=== PATIENT | male | born 1975 | race Caucasian/White ===

== ENCOUNTER → 2016-07-28 | Outpatient (CLI) | payer OTHER ==
[~2016-07-28] MED LIST: CLON1TAB3 PO; EFFSR75 PO; INDSR80 PO; IPRA1AER2 INH; KLN1X PO; MECL1TAB42 PO; PROM25TA9 PO; PROP20TA67 PO; PROP80CA PO; QUET1TAB10 PO; QUET1TAB34 PO; SNG10 PO
[2016-07-28 12:33] LABS: ALT/SGPT 24 U/L (12-78); AST/SGOT 16 U/L (15-37); BLOOD UREA NITROGEN 13 mg/dl (7-18); BUN/CREATININE RATIO 11.4 (10-20); CALCIUM 8.9 mg/dl (8.5-10.1); CARBON DIOXIDE 27 mmol/L (21-32); CHLORIDE 105 mmol/L (98-107); CHOLESTEROL 221 mg/dl (0-200); GLUCOSE 90 mg/dl (70-99); POTASSIUM 4.1 mmol/L (3.5-5.1); SODIUM 141 mmol/L (136-145)
[2016-07-28 12:41] LABS: ALB/GLOB RATIO 1.2 (0.9-2); ALKALINE PHOSPHATASE 58 U/L (45-117); CHOLESTEROL/HDL RATIO 5.3; HDL CHOLESTEROL 42 mg/dl; LDL CHOLESTEROL CALCULATED 138 mg/dl; TRIGLYCERIDES 207 mg/dl (0-150); VERY LOW DENSITY LIPOPROT CALC 41 mg/dl
[2016-07-29 16:12] LABS: MICROSOMAL AB <1 IU/ML (<9)
== END | disposition home or self-care (01) ==
LOC: C.LABBFT 08:38
PROVIDERS: ATTEND Internal Medicine
DX: Z00.00 Encounter for general adult medical examination without abnormal findings (principal); E07.9 Disorder of thyroid, unspecified

== ENCOUNTER 2016-12-11 09:35 | Emergency (ER) | payer OTHER ==
[~2016-12-11] VITALS: Ht 179.1 cm; Wt 120.7 kg
[~2016-12-11 09:35] MED LIST changes: -EFFSR75 PO; -INDSR80 PO; -IPRA1AER2 INH; -KLN1X PO; -MECL1TAB42 PO; -PROM25TA9 PO; -PROP80CA PO; -QUET1TAB10 PO; -SNG10 PO
[2016-12-11 09:42] VITALS: TEMP 36.7; Ht 179.1 cm; Wt 120.7 kg
--- NOTE | 2016-12-11 10:27 | EMERGENCY ROOM VISIT NOTE ---
History Report prepared by Dariana: Javier Faust Under the Supervision of: Dr. Pedro Diaz M.D. First contact with patient: 09:59 Chief Complaint: DIZZY Stated Complaint: EAR PAIN,LOSS OF HEARING,VERTIGO,ACUTE NAUSEA Nursing Triage Summary: Pt arrives to triage diaphoretic. Pt reports problems with left ear for a couple months. Pt reports n/v, dizziness/"vertigo" within the last 1-2 days, hearing difficulty. Pt states, "I tried cleaning it with a q-tip and got black stuff. I put ear drops in it." History of Present Illness The patient is a 41 year old male who presents to the Emergency Room with complaints of pain in the left ear that began 3 days prior to this visit. The patient is also complaining of dizziness that onset at roughly the same time. He describes his dizziness as the room spinning, and claims that it is worsened with standing up/moving. He also notes that he has experienced some acute nausea and vomiting secondary to the dizziness. When his dizziness onsets he becomes diaphoretic. He denies any chest pain, shortness of breath, or abdominal pain. The patient attempted to use some ear drops last night without relief. 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 A total of 10 systems reviewed and were otherwise negative. Past Medical & Surgical Medical Problems: (1) Deviated nasal septum (2) Recurrent bronchitis Old medical records were reviewed. Nurse's notes were reviewed and I agree with. Family History No pertinent family history recorded. Social History Smoking Status: Never Smoker Alcohol Use: none Drug Use: none Marital Status: in relationship Housing Status: lives with significant other Occupation Status: employed Current/Historical Medications Scheduled Clonazepam (Clonazepam), 1 TAB PO BID Ipratropium-Albuterol (Combivent Respimat), 1 PUFF INH BID Montelukast Sod (Montelukast Sodium), 1 TAB PO HS Propranolol Hcl (Propranolol Hcl Er), 1 CAP PO QAM Quetiapine Fumarate (Seroquel), 1 TAB PO HS Venlafaxine Hcl (Effexor Extended Rel), 1 CAP PO QAM Scheduled PRN Meclizine Hcl (Meclizine Hcl), 1 TAB PO TID PRN for Dizziness or Vertigo Allergies Coded Allergies: No Known Allergies (Unverified , 12/11/16) Physical Exam Vital Signs Date Time Temp Pulse Resp B/P (MAP) Pulse Ox O2 Delivery O2 Flow Rate FiO2 12/11/16 12:59 74 20 121/74 94 12/11/16 11:40 68 18 121/75 95 Room Air 12/11/16 09:42 36.7 76 20 146/106 97 Room Air Physical Exam General: Well developed well nourished in no acute distress, breathing comfortably on room air. Normal speech HEENT: Normal cephalic atraumatic. There is no tenderness to the left mastoid, pinnae is normal, no tenderness with movement. Ears: There is debris deep in the canal. Pupils are equal round and reactive to light. Extraocular movements are intact. Oropharynx is pink with moist mucous membranes. No swelling of the mouth lips or tongue. Neck: Supple with a midline trachea. No meningeal signs or stiffness, no JVD or bruits. No Stridor. Chest: Clear to auscultation bilaterally. No wheezes or rhonchi. No increased work of breathing. Heart: regular rate and rhythm. Abdomen: Soft nontender, nondistended without rebound guarding or rigidity. Extremities: No cyanosis clubbing or edema. No calf tenderness or assymetry Spine/Back. Non tender to palpation. No CVA tenderness Skin: Good turgor without rashes. Neurologic exam: Finder to nose intact. Cranial nerves two through 12 are intact. Motor and sensation are intact and symmetrical throughout. Medical Decision & Procedures Laboratory Results 12/11/16 10:48 Red Blood Count 4.62, Mean Corpuscular Volume 89.4, Mean Corpuscular Hemoglobin 30.3, Mean Corpuscular Hemoglobin Concent 33.9, Mean Platelet Volume 8.7, Neutrophils (%) (Auto) 56.1, Lymphocytes (%) (Auto) 30.5, Monocytes (%) (Auto) 5.1, Eosinophils (%) (Auto) 6.6, Basophils (%) (Auto) 0.6, Neutrophils # (Auto) 4.78, Lymphocytes # (Auto) 2.59, Monocytes # (Auto) 0.43, Eosinophils # (Auto) 0.56, Basophils # (Auto) 0.05 12/11/16 10:48 Test 12/11/16 10:48 12/11/16 10:52 White Blood Count 8.50 K/uL (4.8-10.8) Red Blood Count 4.62 M/uL (4.7-6.1) Hemoglobin 14.0 g/dL (14.0-18.0) Hematocrit 41.3 % (42-52) Mean Corpuscular Volume 89.4 fL (80-100) Mean Corpuscular Hemoglobin 30.3 pg (25-34) Mean Corpuscular Hemoglobin Concent 33.9 g/dl (32-36) Platelet Count 244 K/uL (130-400) Mean Platelet Volume 8.7 fL (7.4-10.4) Neutrophils (%) (Auto) 56.1 % Lymphocytes (%) (Auto) 30.5 % Monocytes (%) (Auto) 5.1 % Eosinophils (%) (Auto) 6.6 % Basophils (%) (Auto) 0.6 % Neutrophils # (Auto) 4.78 K/uL (1.4-6.5) Lymphocytes # (Auto) 2.59 K/uL (1.2-3.4) Monocytes # (Auto) 0.43 K/uL (0.11-0.59) Eosinophils # (Auto) 0.56 K/uL (0-0.5) Basophils # (Auto) 0.05 K/uL (0-0.2) RDW Standard Deviation 40.7 fL (36.4-46.3) RDW Coefficient of Variation 12.5 % (11.5-14.5) Immature Granulocyte % (Auto) 1.1 % Immature Granulocyte # (Auto) 0.09 K/uL (0.00-0.02) Anion Gap 8.0 mmol/L (3-11) Est Creatinine Clear Calc Drug Dose 90.2 ml/min Estimated GFR () 71.3 Estimated GFR (Non- 61.5 BUN/Creatinine Ratio 12.7 (10-20) Calcium Level 9.3 mg/dl (8.5-10.1) Bedside Troponin I < 0.030 ng/ml (0-0.045) Laboratory studies as stated above per my review. Medications Administered Medications (Trade) Dose Ordered Sig/Jamal Route Start Time Stop Time Status Last Admin Dose Admin Sodium Chloride 1,000 ml @ 999 mls/hr Q1H1M STAT IV 12/11/16 10:30 12/11/16 11:30 DC 12/11/16 10:53 999 MLS/HR Sodium Chloride 1,000 ml @ 150 mls/hr Q6H40M ONCE IV 12/11/16 10:30 12/11/16 13:30 DC 12/11/16 10:53 150 MLS/HR Ondansetron HCl (Zofran Inj) 4 mg NOW STAT IV 12/11/16 10:30 12/11/16 10:32 DC 12/11/16 11:01 4 MG Neomycin/ Polymyxin/ Hydrocortisone (Cortisporin Otic Soln) 2 drops NOW ONCE OT 12/11/16 12:45 12/11/16 12:46 DC 12/11/16 12:58 2 DROPS ECG Indication: other (Dizziness) Rate (beats per minute): 74 Rhythm: normal sinus Findings: no acute ischemic change, no ectopy Comparison ECG Date: 12/07/2013 ED Course 1013: Past medical records reviewed. The patient was evaluated in room B10, and a complete history and physical examination were performed. 1030: Ordered Zofran 4 mg IV, Sodium Chloride 1000 mL @ 150 mL/hr IV, Sodium Chloride 1000 mL @ 999 mL/hr IV. 1233: Upon reevaluation, the patient is resting comfortably. I discussed the results and treatment plan with him. He verbalized agreement of the treatment plan. The patient was discharged home. 1245: Ordered Neomycin 2 drops OT. Medical Decision Blood Pressure Screening: Patient was found to have a slightly elevated blood pressure due to circumstances. I do not believe that the patient requires hypertension monitoring. Blood pressure Screening: Patient was found to have normal blood pressure on screening and does not require follow-up. Differential Diagnosis includes: Vertigo, infection, cardiac disease, electrolyte or metabolic abnormality. This patient comes in with vertigo. He looks well otherwise is a normal neurologic exam and the pinna is not red or tender. he does have some debris deep in the ear that looks more like an otitis externa however he is not significantly tender. At this point, I do not think is necessarily foreign body more of a inflammatory process and irrigation would likely make vertigo worse. I will put on Cortisporin otic suspension. I also given meclizine for vertigo. His EKG does not suggest acute coronary syndrome or arrhythmia. Blood work is unremarkable and he has no acute electrolyte or metabolic abdomen at least and nothing to suggest infection or CVA. I will our case management team help him get in with an ear, nose, throat specialists or follow-up with his primary doctor this week for recheck and possible further treatment of the ear Impression Primary Impression: Vertigo Additional Impression: Otitis externa Scribe Attestation The scribe's documentation has been prepared under my direction and personally reviewed by me in its entirety. I confirm that the note above accurately reflects all work, treatment, procedures, and medical decision making performed by me. Departure Information Dispostion Home / Self-Care Prescriptions Meclizine Hcl (MECLIZINE HCL) 25 Mg Tab 1 TAB PO TID Y for Dizziness or Vertigo for 10 Days, #30 TAB Prov: Pedro Diaz M.D. 12/11/16 Referrals Catalina Rubin M.D. (PCP) Forms HOME CARE DOCUMENTATION FORM, IMPORTANT VISIT INFORMATION Patient Instructions My [facility] Additional Instructions Rest. Drink plenty of fluids. For dizziness, may use meclizine 25 mg every 8 hours. Meclizine may make you drowsy and do not take before drinking, driving, working and be careful after taking Use Cortisporin otic suspension 2 drops 4 times a day for the next week Return if: Worsening symptoms, chest pain, shortness breath, fever chills, any new problems or concerns Use ibuprofen 400 mg every 6 hours if needed for pain Follow-up with your doctor with your doctor or ENT specialist this week. Problem Qualifiers
[2016-12-11] MEDS ORDERED: SODIUM CHLORIDE 0.9% 1000ML 1,000 ML IV ONE (10:30)
[2016-12-11] MEDS ORDERED: ONDANSETRON INJ 2 MG/ML 2 ML VIAL IV STA (10:30)
[2016-12-11] MEDS ORDERED: SODIUM CHLORIDE 0.9% 1000ML 1,000 ML IV STA (10:30)
[2016-12-11 11:01] LABS: BASO % 0.6 %; BASO ABS # 0.05 K/uL (0-0.2); COMPLETE YES; EOS % 6.6 %; HEMATOCRIT 41.3 % (42-52); IG% 1.1 %; LYMPH % 30.5 %; LYMPH ABS # 2.59 K/uL (1.2-3.4); MEAN CELL VOLUME 89.4 fL (80-100); MEAN CORPUSCULAR HEMOGLOBIN 30.3 pg (25-34); MEAN CORPUSCULAR HGB CONC 33.9 g/dl (32-36); MEAN PLATELET VOLUME 8.7 fL (7.4-10.4); MONO % 5.1 %; NEUT % 56.1 %; PLATELET COUNT 244 K/uL (130-400); RED BLOOD COUNT 4.62 M/uL (4.7-6.1)
[2016-12-11 11:20] LABS: BUN/CREATININE RATIO 12.7 (10-20); CALCIUM 9.3 mg/dl (8.5-10.1); CREATININE 1.4 mg/dl (0.60-1.40); POTASSIUM 4.1 mmol/L (3.5-5.1)
[2016-12-11] MEDS ORDERED: PROP80CA PO (11:21)
[2016-12-11] MEDS ORDERED: QUET1TAB10 PO (11:21)
[2016-12-11] MEDS ORDERED: SNG10 PO (11:21)
[2016-12-11] MEDS ORDERED: KLN1X PO (11:21)
[2016-12-11] MEDS ORDERED: IPRA1AER2 INH (11:21)
[2016-12-11] MEDS ORDERED: EFFSR75 PO (11:21)
[2016-12-11] MEDS ORDERED: INDSR80 PO (11:21)
[2016-12-11] MEDS ORDERED: MECL1TAB42 PO (12:34)
[2016-12-11] MEDS ORDERED: NEOMYCIN/POLYMYX/HYDROCORT OT SOLN 10 ML BTL OT ONE (12:45)
[2016-12-11 12:59] VITALS: BP 121/74; PULSE 74; O2SAT 94
== END 2016-12-11 12:59 | disposition home or self-care (01) ==
LOC: C.EDB 09:37
DX: R42 Dizziness and giddiness (principal); H60.92 Unspecified otitis externa, left ear; R11.2 Nausea with vomiting, unspecified; R61 Generalized hyperhidrosis; Z79.899 Other long term (current) drug therapy

== ENCOUNTER 2016-12-27 06:24 | Emergency (ER) | payer OTHER ==
[~2016-12-27] VITALS: Ht 177.8 cm; Wt 113.8 kg
[~2016-12-27 06:24] MED LIST changes: -CLON1TAB3 PO; +EFFSR75 PO; +IPRA1AER2 INH; +KLN1X PO; -PROP20TA67 PO; +PROP80CA PO; +QUET1TAB10 PO; -QUET1TAB34 PO; +SNG10 PO
[2016-12-27 06:25] VITALS: TEMP 36.8; Ht 177.8 cm; Wt 113.8 kg
[2016-12-27] MEDS ORDERED: SODIUM CHLORIDE 0.9% 1000ML 2,000 ML IV STA (06:49)
[2016-12-27] MEDS ORDERED: ONDANSETRON INJ 2 MG/ML 2 ML VIAL IV STA (06:49)
--- NOTE | 2016-12-27 07:00 | EMERGENCY ROOM VISIT NOTE ---
History Report prepared by Dariana: Maritza Esposito Under the Supervision of: Dr. Sol Weller M.D. First contact with patient: 06:39 Chief Complaint: NAUSEA Stated Complaint: NAUSEA,VOMITING,DIARRHEA History of Present Illness The patient is a 41 year old male who presents to the Emergency Room with complaints of worsening nausea beginning 5 days prior to arrival. He notes he is also experiencing vomiting and diarrhea episodes. The patient denies blood in his vomit or black stools. He notes a decreased in his appetite and he is beginning to feel dehydrated. The patient states that last night he took 6 Imodium capsules and his episodes of diarrhea did not subside. He notes that a few weeks ago he had similar symptoms but states those symptoms completely resolved before he began to experience them again. He has taken Promethazine for the nausea. The patient did take Ibuprofen several times a day last week for pain in his knee and wrist. The patient takes Seroquel and Klonopin daily. He denies daily blood thinner use. 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 Review of Systems See HPI for pertinent positives & negatives. A total of 10 systems reviewed and were otherwise negative. Past Medical & Surgical Medical Problems: (1) Deviated nasal septum (2) Recurrent bronchitis Family History Patient reports no known family medical history. Social History Smoking Status: Former Smoker Alcohol Use: none Drug Use: none Marital Status: in relationship Housing Status: lives with significant other Occupation Status: employed Current/Historical Medications Scheduled Clonazepam (Clonazepam), 1 MG PO BID Ipratropium-Albuterol (Combivent Respimat), 1 PUFF INH BID Montelukast Sod (Montelukast Sodium), 10 MG PO HS Propranolol Hcl (Propranolol Hcl Er), 80 MG PO QAM Quetiapine Fumarate (Seroquel), 200 MG PO HS Venlafaxine Hcl (Effexor Extended Rel), 75 MG PO QAM Scheduled PRN Promethazine Hcl (Phenergan), 25 MG PO Q6H PRN for Nausea Allergies Coded Allergies: No Known Allergies (Unverified , 12/27/16) Physical Exam Vital Signs Date Time Temp Pulse Resp B/P (MAP) Pulse Ox O2 Delivery O2 Flow Rate FiO2 12/27/16 10:27 71 18 135/95 97 12/27/16 09:33 69 18 133/104 100 Room Air 12/27/16 08:00 69 18 117/81 99 Room Air 12/27/16 07:07 75 12/27/16 06:25 36.8 82 18 132/98 98 Room Air Physical Exam Vital signs reviewed. General: Well-appearing male, in no significant distress. HEENT: No scleral icterus, PERRLA, neck supple. Dry mucous membranes. Atraumatic. Cardiovascular: Regular rate and rhythm, no extra sounds. Pulmonary: Clear to auscultation bilaterally, normal work of breathing. Abdomen: Obese. Soft, nontender, nondistended, positive bowel sounds. Coag negative. Musculoskeletal: Atraumatic, no peripheral edema. Neurologic: Patient awake alert and oriented x 3, full strength in all 4 extremities. Cranial nerves 2 through 12 grossly intact. Skin: Pale, warm, dry, no rash Medical Decision & Procedures ER Provider Diagnostic Interpretation: X-ray results as stated below per interpretation by me and the radiologist: ABDOMEN 2VIEW W/PA CHEST RTN HISTORY: 41 years Male patient presents with acute nausea, vomiting and diarrhea. COMPARISON: Portable chest radiograph 12/07/2013 TECHNIQUE: Frontal view of the chest with erect and supine views of the abdomen. FINDINGS: Cardiomediastinal and hilar silhouettes are within normal limits. No pneumothorax, pleural effusion or focal airspace consolidation. The bones are grossly intact. There are multiple air-fluid levels within nondilated loops of bowel within the right mid abdomen and pelvis which is likely within loops of small bowel. There is paucity of bowel gas throughout the central and left abdomen. No pneumoperitoneum on the upright projection. No urolith identified. No fracture. IMPRESSION: 1. Multiple air-fluid levels within nondilated loops of small bowel within the right mid abdomen and pelvis suggest enteritis or ileus. 2. No evidence of bowel obstruction or pneumoperitoneum. 3. No acute cardiopulmonary process. The above report was generated using voice recognition software. It may contain grammatical, syntax or spelling errors. Electronically signed by: Jim Christine M.D. 12/27/2016 7:40 AM Dictated Date/Time: 12/27/2016 7:37 AM Laboratory Results 12/27/16 06:42 Red Blood Count 5.38, Mean Corpuscular Volume 88.3, Mean Corpuscular Hemoglobin 30.7, Mean Corpuscular Hemoglobin Concent 34.7, Mean Platelet Volume 9.4, Neutrophils (%) (Auto) 52.8, Lymphocytes (%) (Auto) 24.7, Monocytes (%) (Auto) 5.7, Eosinophils (%) (Auto) 15.2, Basophils (%) (Auto) 0.4, Neutrophils # (Auto ) 7.18, Lymphocytes # (Auto) 3.36, Monocytes # (Auto) 0.78, Eosinophils # (Auto ) 2.07, Basophils # (Auto) 0.06 12/27/16 06:42 Test 12/27/16 06:42 12/27/16 06:58 12/27/16 08:15 White Blood Count 13.62 K/uL (4.8-10.8) Red Blood Count 5.38 M/uL (4.7-6.1) Hemoglobin 16.5 g/dL (14.0-18.0) Hematocrit 47.5 % (42-52) Mean Corpuscular Volume 88.3 fL (80-100) Mean Corpuscular Hemoglobin 30.7 pg (25-34) Mean Corpuscular Hemoglobin Concent 34.7 g/dl (32-36) Platelet Count 244 K/uL (130-400) Mean Platelet Volume 9.4 fL (7.4-10.4) Neutrophils (%) (Auto) 52.8 % Lymphocytes (%) (Auto) 24.7 % Monocytes (%) (Auto) 5.7 % Eosinophils (%) (Auto) 15.2 % Basophils (%) (Auto) 0.4 % Neutrophils # (Auto) 7.18 K/uL (1.4-6.5) Lymphocytes # (Auto) 3.36 K/uL (1.2-3.4) Monocytes # (Auto) 0.78 K/uL (0.11-0.59) Eosinophils # (Auto) 2.07 K/uL (0-0.5) Basophils # (Auto) 0.06 K/uL (0-0.2) RDW Standard Deviation 40.8 fL (36.4-46.3) RDW Coefficient of Variation 12.7 % (11.5-14.5) Immature Granulocyte % (Auto) 1.2 % Immature Granulocyte # (Auto) 0.17 K/uL (0.00-0.02) Est Creatinine Clear Calc Drug Dose 76.0 ml/min Estimated GFR () 60.7 Estimated GFR (Non- 52.4 BUN/Creatinine Ratio 8.7 (10-20) Calcium Level 9.6 mg/dl (8.5-10.1) Magnesium Level 1.8 mg/dl (1.8-2.4) Total Bilirubin 0.5 mg/dl (0.2-1) Direct Bilirubin < 0.1 mg/dl (0-0.2) Aspartate Amino Transf (AST/SGOT) 10 U/L (15-37) Alanine Aminotransferase (ALT/SGPT) 21 U/L (12-78) Alkaline Phosphatase 80 U/L (45-117) Total Protein 7.7 gm/dl (6.4-8.2) Albumin 4.0 gm/dl (3.4-5.0) Lipase 96 U/L (73-393) Bedside Hemoglobin 16.7 g/dl (14.0-18.0) Bedside Hematocrit 49 % (42-52) Bedside Sodium 139 mEq/L (135-144) Bedside Potassium 3.8 mEq/L (3.3-5.0) Bedside Chloride 99 mEq/L (101-112) Bedside Total CO2 25 mEq/l (24-31) Anion Gap 18.0 mmol/L (16-25) Bedside Blood Urea Nitrogen 15 mg/dl (7-18) Bedside Creatinine 1.4 mg/dl (0.6-1.3) Bedside Glucose (other) 99 mg/dl (70-99) Bedside Ionized Calcium (Dinorah) 1.20 mmol/l (1.12-1.32) Urine Color DK YELLOW Urine Appearance CLEAR (CLEAR) Urine pH 5.5 (4.5-7.5) Urine Specific [place] 1.030 (1.000-1.030) Urine Protein TRACE (NEG) Urine Glucose (UA) NEG (NEG) Urine Ketones TRACE (NEG) Urine Occult Blood NEG (NEG) Urine Nitrite NEG (NEG) Urine Bilirubin NEG (NEG) Urine Urobilinogen NEG (NEG) Urine Leukocyte Esterase NEG (NEG) Urine WBC (Auto) 1-5 /hpf (0-5) Urine RBC (Auto) 0-4 /hpf (0-4) Urine Hyaline Casts (Auto) 1-5 /lpf (0-5) Urine Epithelial Cells (Auto) 20-30 /lpf (0-5) Urine Bacteria (Auto) NEG (NEG) Urine Crystals CALCIUM OXALATE (NONE Urine Pathogenic Casts /lpf (0) Urine Mucus PRESENT (NONE PRSENT) Date/Time Source Procedure Growth Status 12/27/16 07:00 Stool C.difficile Toxin B Gene (PCR) - Final No C. difficile toxin B gene detected Complete Laboratory results per my review. Medications Administered Medications (Trade) Dose Ordered Sig/Jamal Route Start Time Stop Time Status Last Admin Dose Admin Sodium Chloride 2,000 ml @ 999 mls/hr Q2H1M STAT IV 12/27/16 06:49 12/27/16 08:49 DC 12/27/16 07:02 999 MLS/HR Ondansetron HCl (Zofran Inj) 4 mg NOW STAT IV 12/27/16 06:49 12/27/16 06:52 DC 12/27/16 07:02 4 MG ECG Indication: nausea Rate (beats per minute): 72 Rhythm: normal sinus Findings: no acute ischemic change, no ectopy ED Course 0647: Past medical records reviewed. The patient was evaluated in room A4. A complete history and physical examination was performed. 0649: Zofran Inj 4 mg IV, Sodium Chloride 2,000 ml @ 999 mls/hr IV. 1010: I reevaluated the patient and he is feeling better. 1020: Upon reevaluation, the patient appeared to have improvement of his symptoms. I discussed findings with the patient. He verbalized agreement of the treatment plan. He was discharged home. Medical Decision The patient is a 41 year old male who presents to the ED with complaints of nausea. Differentials include gastroenteritis, food borne illness, infections, appendicitis, diverticulitis, inflammatory bowel disease, obstruction, GI bleed , colitis, C. Diff, biliary pathology, as well as others were entertained. Medication Reconciliation: I attest that I have personally reviewed the patient' s current medication list. Blood Pressure Screening: Patient was found to have a slightly elevated blood pressure due to circumstances. I do not believe that the patient requires hypertension monitoring. This patient was evaluated and appeared to be in no significant distress. IV access was obtained and laboratory work was drawn. Patient was hydrated with normal saline solution, given IV Zofran for his nausea. Patient's laboratory work is fairly unrevealing. His creatinine is 1.4 which is similar to previous. Stool sample was obtained and is negative for C. difficile, cultures are pending. Guaiac is negative. Patient was informed of the findings. He was given a prescription for promethazine every 6 hours as needed for nausea. He will drink plenty of clear fluids and advance his diet slowly as tolerated. Patient was advised to follow-up with his PCP this week for reevaluation. The patient will return to the ER for worsening of symptoms or any medical concerns. Impression Primary Impression: Nausea vomiting and diarrhea Scribe Attestation The scribe's documentation has been prepared under my direction and personally reviewed by me in its entirety. I confirm that the note above accurately reflects all work, treatment, procedures, and medical decision making performed by me. Departure Information Dispostion Home / Self-Care Prescriptions Promethazine Hcl (Phenergan) 25 Mg Tab 25 MG PO Q6H Y for Nausea, #20 TAB Prov: Sol Weller M.D. 12/27/16 Referrals Catalina Rubin M.D. (PCP) Forms HOME CARE DOCUMENTATION FORM, IMPORTANT VISIT INFORMATION Patient Instructions My [facility] Additional Instructions Diagnosis: Nausea, vomiting and diarrhea Drink plenty of clear fluids. Promethazine 25 mg every 6 hours as needed for nausea. Advance your diet slowly as tolerated. BRAT diet: Bananas, rice, applesauce and toast. Avoid dairy, greasy and spicy foods. Avoid aspirin, Aleve and ibuprofen as it will irritate your stomach Follow-up with your physician this week for reevaluation. Return to the ER for worsening of symptoms or any medical concerns.
[2016-12-27 07:01] LABS: BASO % 0.4 %; BASO ABS # 0.06 K/uL (0-0.2); COMPLETE YES; EOS % 15.2 %; HEMATOCRIT 47.5 % (42-52); IG% 1.2 %; LYMPH % 24.7 %; LYMPH ABS # 3.36 K/uL (1.2-3.4); MEAN CELL VOLUME 88.3 fL (80-100); MEAN CORPUSCULAR HEMOGLOBIN 30.7 pg (25-34); MEAN CORPUSCULAR HGB CONC 34.7 g/dl (32-36); MEAN PLATELET VOLUME 9.4 fL (7.4-10.4); MONO % 5.7 %; NEUT % 52.8 %; PLATELET COUNT 244 K/uL (130-400); RED BLOOD COUNT 5.38 M/uL (4.7-6.1); WHITE BLOOD COUNT 13.62 K/uL (4.8-10.8)
[2016-12-27 07:12] LABS: ISTAT CREATININE 1.4 mg/dl (0.6-1.3); ISTAT HEMOGLOBIN 16.7 g/dl (14.0-18.0); ISTAT IONIZED CALCIUM 1.2 mmol/l (1.12-1.32)
[2016-12-27 07:27] LABS: ALT/SGPT 21 U/L (12-78); BLOOD UREA NITROGEN 14 mg/dl (7-18); BUN/CREATININE RATIO 8.7 (10-20); CALCIUM 9.6 mg/dl (8.5-10.1); CARBON DIOXIDE 27 mmol/L (21-32); CHLORIDE 103 mmol/L (98-107); GLUCOSE 97 mg/dl (70-99); MAGNESIUM 1.8 mg/dl (1.8-2.4); POTASSIUM 3.6 mmol/L (3.5-5.1); SODIUM 137 mmol/L (136-145)
[2016-12-27 07:29] LABS: ALKALINE PHOSPHATASE 80 U/L (45-117); AST/SGOT 10 U/L (15-37)
--- NOTE | 2016-12-27 07:41 | DIAGNOSTIC IMAGING REPORT ---
ABDOMEN 2VIEW W/PA CHEST RTN HISTORY: 41 years Male patient presents with acute nausea, vomiting and diarrhea. COMPARISON: Portable chest radiograph 12/07/2013 TECHNIQUE: Frontal view of the chest with erect and supine views of the abdomen. FINDINGS: Cardiomediastinal and hilar silhouettes are within normal limits. No pneumothorax, pleural effusion or focal airspace consolidation. The bones are grossly intact. There are multiple air-fluid levels within nondilated loops of bowel within the right mid abdomen and pelvis which is likely within loops of small bowel. There is paucity of bowel gas throughout the central and left abdomen. No pneumoperitoneum on the upright projection. No urolith identified. No fracture. IMPRESSION: 1. Multiple air-fluid levels within nondilated loops of small bowel within the right mid abdomen and pelvis suggest enteritis or ileus. 2. No evidence of bowel obstruction or pneumoperitoneum. 3. No acute cardiopulmonary process. The above report was generated using voice recognition software. It may contain grammatical, syntax or spelling errors. Electronically signed by: Jim Christine M.D. 12/27/2016 7:40 AM Dictated Date/Time: 12/27/2016 7:37 AM
[2016-12-27 08:25] LABS: URINE APPEARANCE CLEAR (CLEAR); URINE BILIRUBIN NEG (NEG); URINE COLOR DK YELLOW; URINE EPITHELIAL CELL AUTO 20-30 /lpf (0-5); URINE NITRITE NEG (NEG); URINE PH 5.5 (4.5-7.5); UROBILINOGEN NEG (NEG); ZZUR CULT IF INDIC CLEAN CATCH NO
[2016-12-27 08:29] LABS: MANUAL MICROSCOPIC REQUIRED? NO; REVIEW REQ? YES
[2016-12-27 08:49] LABS: URINE MUCUS PRESENT (NONE PRSENT)
[2016-12-27] MEDS ORDERED: PROM25TA9 PO (10:20)
[2016-12-27 10:27] VITALS: BP 135/95; PULSE 71; O2SAT 97
== END 2016-12-27 10:27 | disposition home or self-care (01) ==
LOC: C.EDB 06:25 → C.EDA 10:27
DX: R11.2 Nausea with vomiting, unspecified (principal); R19.7 Diarrhea, unspecified; Z79.899 Other long term (current) drug therapy; Z87.891 Personal history of nicotine dependence

== ENCOUNTER 2018-08-13 20:00 | Inpatient (IN) ==
[2018-08-13] MEDS ORDERED: ONDANSETRON INJ 2 MG/ML 2 ML VIAL IV STA (20:16)
--- NOTE | 2018-08-13 20:27 | Emergency Department Note ---
Entered by Lupe Jones acting as a scribe for Moise Gonzalez DO History of Present Illness General Chief complaint: Abdominal Pain Stated complaint: EXTREME ABD PAIN Time Seen by Provider: 08/13/18 20:08 Source: patient Mode of arrival: ambulatory Limitations: no limitations History of Present Illness Provider complaint: Abd pain Onset (ago): hour(s) 9 Location: abdomen Severity: moderate Pain Consistency: + constant Maximum Pain Intensity: 8 Associated symptoms: + denies other symptoms and + nausea/vomiting; no chest pain and no shortness of breath Patient is a 43 year old male presenting to the ED with abd pain today beginning at approximately 1100. Pain is moderate in severity and constant since onset. Pain came on gradually and is located in the upper abd region and into the right flank region. He shares he did have one episode of vomiting upon arrival. Patient notes he has taken piroxicam, Excedrin, and anti-acid today, with no improvement in sx. He denies any hematuria, melena, hematochezia, SOB, CP, or any other sx at this time. Patient shares he does take medications for anxiety and insomnia. Home Medications Home Medications Medication Instructions Recorded Confirmed Type clonazepam 1 mg PO BID 08/13/18 08/13/18 History ipratropium-albuterol [Combivent 1 puff INHALATION BID PRN 08/13/18 08/13/18 History Respimat] piroxicam 20 mg PO DAILY 08/13/18 08/13/18 History propranolol 20 mg PO QID 08/13/18 08/13/18 History quetiapine [Seroquel] 200 mg PO HS 08/13/18 08/13/18 History Allergies Allergy/AdvReac Type Severity Reaction Status Date / Time No Known Allergies Allergy Verified 08/13/18 20:53 Past Med/Surg History Medical History Deviated nasal septum (Chronic) sinus surgery x2 Anxiety Hypothyroidism Palpitations Tachycardia Wrist fracture surgery. left Surgical History No pertinent past surgical history Hx of tonsillectomy Family History Other Family history non-contributory Social History Preferred Language: [place] Communication Ability: Effective Furniture Dipper Required: No Beliefs That Will Affect Care: None Current Living Situation: Spouse Other Information That Helps Us Care for You: No Feels Safe at Home: Yes Safety Concerns: Feels Safe At This Time Smoking Status: Former smoker Hx Alcohol Use: No Review of Systems See HPI for pertinent positives & negatives. and A total of 10 systems reviewed and were otherwise negative Physical Exam Vital Signs Vital Signs - 24 hr 08/13/18 20:07 08/13/18 21:06 08/13/18 21:20 Temperature 36.9 C Temperature Source Oral Sepsis Recent Fever Within 48 Hours No Sepsis New/Unexplained Change in Mental Status No Sepsis Action Taken by Nursing No Action Required Pulse Rate 78 68 66 Pulse Rate [Apical] 67 Pulse Rate [Finger] Pulse Rate [Left Brachial] Pulse Rate from SpO2 Sensor 69 67 Pulse Rhythm Regular Pulse Rhythm [Apical] Pulse Rhythm [Finger] Pulse Strength Normal Pulse Strength [Finger] Respiratory Rate 20 22 20 Respiratory Effort / Characteristics Non-Labored Spontaneous Non-Labored Respiratory Depth Normal Normal Respiratory Pattern Regular Regular Blood Pressure 167/104 H 149/101 H Blood Pressure [Left Arm] Blood Pressure [Right Arm] 149/101 H Blood Pressure Mean 125 117 Blood Pressure Mean [Left Arm] Blood Pressure Mean [Right Arm] 117 Blood Pressure Position Sitting Blood Pressure Position [Left Arm] Pulse Oximetry 100 98 97 Oxygen Delivery Method Room Air Room Air Oxygen Flow Rate 08/13/18 21:25 08/13/18 21:29 08/13/18 21:30 Temperature Temperature Source Sepsis Recent Fever Within 48 Hours Sepsis New/Unexplained Change in Mental Status Sepsis Action Taken by Nursing Pulse Rate 64 62 64 Pulse Rate [Apical] Pulse Rate [Finger] Pulse Rate [Left Brachial] Pulse Rate from SpO2 Sensor 67 63 62 Pulse Rhythm Pulse Rhythm [Apical] Pulse Rhythm [Finger] Pulse Strength Pulse Strength [Finger] Respiratory Rate 20 15 13 Respiratory Effort / Characteristics Respiratory Depth Respiratory Pattern Blood Pressure 145/106 H Blood Pressure [Left Arm] Blood Pressure [Right Arm] Blood Pressure Mean 119 Blood Pressure Mean [Left Arm] Blood Pressure Mean [Right Arm] Blood Pressure Position Blood Pressure Position [Left Arm] Pulse Oximetry 97 96 98 Oxygen Delivery Method Oxygen Flow Rate 08/13/18 21:31 08/13/18 21:35 03/04/19 21:40 Temperature Temperature Source Sepsis Recent Fever Within 48 Hours Sepsis New/Unexplained Change in Mental Status Sepsis Action Taken by Nursing Pulse Rate 65 71 Pulse Rate [Apical] 62 Pulse Rate [Finger] Pulse Rate [Left Brachial] Pulse Rate from SpO2 Sensor 65 71 Pulse Rhythm Pulse Rhythm [Apical] Pulse Rhythm [Finger] Pulse Strength Pulse Strength [Finger] Respiratory Rate 16 24 21 Respiratory Effort / Characteristics Non-Labored Respiratory Depth Normal Respiratory Pattern Regular Blood Pressure Blood Pressure [Left Arm] Blood Pressure [Right Arm] 145/106 H Blood Pressure Mean Blood Pressure Mean [Left Arm] Blood Pressure Mean [Right Arm] 119 Blood Pressure Position Blood Pressure Position [Left Arm] Pulse Oximetry 97 96 98 Oxygen Delivery Method Room Air Oxygen Flow Rate 08/13/18 21:45 08/13/18 21:50 08/13/18 21:55 Temperature Temperature Source Sepsis Recent Fever Within 48 Hours Sepsis New/Unexplained Change in Mental Status Sepsis Action Taken by Nursing Pulse Rate 69 77 70 Pulse Rate [Apical] Pulse Rate [Finger] Pulse Rate [Left Brachial] Pulse Rate from SpO2 Sensor 69 76 70 Pulse Rhythm Pulse Rhythm [Apical] Pulse Rhythm [Finger] Pulse Strength Pulse Strength [Finger] Respiratory Rate 20 23 21 Respiratory Effort / Characteristics Respiratory Depth Respiratory Pattern Blood Pressure Blood Pressure [Left Arm] Blood Pressure [Right Arm] Blood Pressure Mean Blood Pressure Mean [Left Arm] Blood Pressure Mean [Right Arm] Blood Pressure Position Blood Pressure Position [Left Arm] Pulse Oximetry 96 96 95 Oxygen Delivery Method Oxygen Flow Rate 08/13/18 22:00 08/13/18 22:05 08/13/18 22:10 Temperature Temperature Source Sepsis Recent Fever Within 48 Hours Sepsis New/Unexplained Change in Mental Status Sepsis Action Taken by Nursing Pulse Rate 72 72 69 Pulse Rate [Apical] Pulse Rate [Finger] Pulse Rate [Left Brachial] Pulse Rate from SpO2 Sensor 72 72 69 Pulse Rhythm Pulse Rhythm [Apical] Pulse Rhythm [Finger] Pulse Strength Pulse Strength [Finger] Respiratory Rate 15 19 23 Respiratory Effort / Characteristics Respiratory Depth Respiratory Pattern Blood Pressure Blood Pressure [Left Arm] Blood Pressure [Right Arm] Blood Pressure Mean Blood Pressure Mean [Left Arm] Blood Pressure Mean [Right Arm] Blood Pressure Position Blood Pressure Position [Left Arm] Pulse Oximetry 98 96 96 Oxygen Delivery Method Oxygen Flow Rate 08/13/18 22:15 08/13/18 22:20 08/13/18 22:25 Temperature Temperature Source Sepsis Recent Fever Within 48 Hours Sepsis New/Unexplained Change in Mental Status Sepsis Action Taken by Nursing Pulse Rate 69 66 67 Pulse Rate [Apical] Pulse Rate [Finger] Pulse Rate [Left Brachial] Pulse Rate from SpO2 Sensor 69 67 69 Pulse Rhythm Pulse Rhythm [Apical] Pulse Rhythm [Finger] Pulse Strength Pulse Strength [Finger] Respiratory Rate 20 22 21 Respiratory Effort / Characteristics Respiratory Depth Respiratory Pattern Blood Pressure Blood Pressure [Left Arm] Blood Pressure [Right Arm] Blood Pressure Mean Blood Pressure Mean [Left Arm] Blood Pressure Mean [Right Arm] Blood Pressure Position Blood Pressure Position [Left Arm] Pulse Oximetry 97 98 96 Oxygen Delivery Method Oxygen Flow Rate 08/13/18 22:30 08/13/18 22:35 08/13/18 22:40 Temperature Temperature Source Sepsis Recent Fever Within 48 Hours Sepsis New/Unexplained Change in Mental Status Sepsis Action Taken by Nursing Pulse Rate 68 75 71 Pulse Rate [Apical] Pulse Rate [Finger] Pulse Rate [Left Brachial] Pulse Rate from SpO2 Sensor 69 75 72 Pulse Rhythm Pulse Rhythm [Apical] Pulse Rhythm [Finger] Pulse Strength Pulse Strength [Finger] Respiratory Rate 20 29 H 21 Respiratory Effort / Characteristics Respiratory Depth Respiratory Pattern Blood Pressure Blood Pressure [Left Arm] Blood Pressure [Right Arm] Blood Pressure Mean Blood Pressure Mean [Left Arm] Blood Pressure Mean [Right Arm] Blood Pressure Position Blood Pressure Position [Left Arm] Pulse Oximetry 97 97 97 Oxygen Delivery Method Oxygen Flow Rate 08/13/18 22:45 08/13/18 22:50 08/13/18 22:52 Temperature Temperature Source Sepsis Recent Fever Within 48 Hours Sepsis New/Unexplained Change in Mental Status Sepsis Action Taken by Nursing Pulse Rate 72 70 68 Pulse Rate [Apical] 68 Pulse Rate [Finger] Pulse Rate [Left Brachial] Pulse Rate from SpO2 Sensor 72 70 67 Pulse Rhythm Pulse Rhythm [Apical] Pulse Rhythm [Finger] Pulse Strength Pulse Strength [Finger] Respiratory Rate 27 H 25 H 23 Respiratory Effort / Characteristics Non-Labored Respiratory Depth Normal Respiratory Pattern Regular Blood Pressure 124/95 Blood Pressure [Left Arm] Blood Pressure [Right Arm] 124/95 Blood Pressure Mean 104 Blood Pressure Mean [Left Arm] Blood Pressure Mean [Right Arm] 104 Blood Pressure Position Blood Pressure Position [Left Arm] Pulse Oximetry 96 96 97 Oxygen Delivery Method Room Air Oxygen Flow Rate 08/13/18 22:55 08/13/18 23:00 08/13/18 23:05 Temperature Temperature Source Sepsis Recent Fever Within 48 Hours Sepsis New/Unexplained Change in Mental Status Sepsis Action Taken by Nursing Pulse Rate 69 71 69 Pulse Rate [Apical] Pulse Rate [Finger] Pulse Rate [Left Brachial] Pulse Rate from SpO2 Sensor 69 71 69 Pulse Rhythm Pulse Rhythm [Apical] Pulse Rhythm [Finger] Pulse Strength Pulse Strength [Finger] Respiratory Rate 20 23 18 Respiratory Effort / Characteristics Respiratory Depth Respiratory Pattern Blood Pressure Blood Pressure [Left Arm] Blood Pressure [Right Arm] Blood Pressure Mean Blood Pressure Mean [Left Arm] Blood Pressure Mean [Right Arm] Blood Pressure Position Blood Pressure Position [Left Arm] Pulse Oximetry 95 95 96 Oxygen Delivery Method Oxygen Flow Rate 08/13/18 23:10 08/13/18 23:15 08/13/18 23:20 Temperature Temperature Source Sepsis Recent Fever Within 48 Hours Sepsis New/Unexplained Change in Mental Status Sepsis Action Taken by Nursing Pulse Rate 72 71 69 Pulse Rate [Apical] Pulse Rate [Finger] Pulse Rate [Left Brachial] Pulse Rate from SpO2 Sensor 72 72 68 Pulse Rhythm Pulse Rhythm [Apical] Pulse Rhythm [Finger] Pulse Strength Pulse Strength [Finger] Respiratory Rate 21 18 12 Respiratory Effort / Characteristics Respiratory Depth Respiratory Pattern Blood Pressure Blood Pressure [Left Arm] Blood Pressure [Right Arm] Blood Pressure Mean Blood Pressure Mean [Left Arm] Blood Pressure Mean [Right Arm] Blood Pressure Position Blood Pressure Position [Left Arm] Pulse Oximetry 95 97 97 Oxygen Delivery Method Oxygen Flow Rate 08/13/18 23:25 08/13/18 23:58 08/13/18 23:59 Temperature Temperature Source Sepsis Recent Fever Within 48 Hours Sepsis New/Unexplained Change in Mental Status Sepsis Action Taken by Nursing Pulse Rate 72 Pulse Rate [Apical] Pulse Rate [Finger] Pulse Rate [Left Brachial] Pulse Rate from SpO2 Sensor 72 66 64 Pulse Rhythm Pulse Rhythm [Apical] Pulse Rhythm [Finger] Pulse Strength Pulse Strength [Finger] Respiratory Rate 16 Respiratory Effort / Characteristics Respiratory Depth Respiratory Pattern Blood Pressure 151/94 H Blood Pressure [Left Arm] Blood Pressure [Right Arm] Blood Pressure Mean 113 Blood Pressure Mean [Left Arm] Blood Pressure Mean [Right Arm] Blood Pressure Position Blood Pressure Position [Left Arm] Pulse Oximetry 95 96 96 Oxygen Delivery Method Oxygen Flow Rate 08/14/18 00:00 08/14/18 00:02 08/14/18 00:05 Temperature Temperature Source Sepsis Recent Fever Within 48 Hours Sepsis New/Unexplained Change in Mental Status Sepsis Action Taken by Nursing Pulse Rate Pulse Rate [Apical] 82 Pulse Rate [Finger] Pulse Rate [Left Brachial] Pulse Rate from SpO2 Sensor 67 67 Pulse Rhythm Pulse Rhythm [Apical] Pulse Rhythm [Finger] Pulse Strength Pulse Strength [Finger] Respiratory Rate 20 Respiratory Effort / Characteristics Respiratory Depth Respiratory Pattern Blood Pressure Blood Pressure [Left Arm] Blood Pressure [Right Arm] 151/94 H Blood Pressure Mean Blood Pressure Mean [Left Arm] Blood Pressure Mean [Right Arm] 113 Blood Pressure Position Blood Pressure Position [Left Arm] Pulse Oximetry 96 96 96 Oxygen Delivery Method Room Air Oxygen Flow Rate 08/14/18 00:10 08/14/18 00:15 08/14/18 00:45 Temperature 37.3 C Temperature Source Oral Sepsis Recent Fever Within 48 Hours Sepsis New/Unexplained Change in Mental Status Sepsis Action Taken by Nursing Pulse Rate Pulse Rate [Apical] 73 Pulse Rate [Finger] Pulse Rate [Left Brachial] 73 Pulse Rate from SpO2 Sensor 67 Pulse Rhythm Pulse Rhythm [Apical] Pulse Rhythm [Finger] Pulse Strength Pulse Strength [Finger] Respiratory Rate 18 Respiratory Effort / Characteristics Respiratory Depth Respiratory Pattern Blood Pressure Blood Pressure [Left Arm] 148/104 H 151/99 H Blood Pressure [Right Arm] Blood Pressure Mean Blood Pressure Mean [Left Arm] 118 116 Blood Pressure Mean [Right Arm] Blood Pressure Position Blood Pressure Position [Left Arm] Lying Pulse Oximetry 95 98 Oxygen Delivery Method Room Air Oxygen Flow Rate 08/14/18 04:32 08/14/18 08:00 08/14/18 08:57 Temperature 36.6 C Temperature Source Oral Sepsis Recent Fever Within 48 Hours Sepsis New/Unexplained Change in Mental Status Sepsis Action Taken by Nursing Pulse Rate Pulse Rate [Apical] Pulse Rate [Finger] 83 Pulse Rate [Left Brachial] 73 86 Pulse Rate from SpO2 Sensor Pulse Rhythm Pulse Rhythm [Apical] Pulse Rhythm [Finger] Pulse Strength Pulse Strength [Finger] Respiratory Rate 16 Respiratory Effort / Characteristics Respiratory Depth Normal Respiratory Pattern Blood Pressure Blood Pressure [Left Arm] 146/90 H 120/82 96/63 L Blood Pressure [Right Arm] Blood Pressure Mean Blood Pressure Mean [Left Arm] 108 94 74 Blood Pressure Mean [Right Arm] Blood Pressure Position Blood Pressure Position [Left Arm] Lying Sitting Lying Pulse Oximetry 94 Oxygen Delivery Method Room Air Oxygen Flow Rate 08/14/18 11:40 08/14/18 14:27 08/14/18 14:28 Temperature 37 C 37.9 C H Temperature Source Oral Temporal Artery Scan Sepsis Recent Fever Within 48 Hours Sepsis New/Unexplained Change in Mental Status Sepsis Action Taken by Nursing Pulse Rate 87 75 Pulse Rate [Apical] 85 Pulse Rate [Finger] 76 Pulse Rate [Left Brachial] Pulse Rate from SpO2 Sensor 87 76 Pulse Rhythm Pulse Rhythm [Apical] Regular Pulse Rhythm [Finger] Regular Pulse Strength Pulse Strength [Finger] Normal Respiratory Rate 18 19 Respiratory Effort / Characteristics Non-Labored Spontaneous Non-Labored Spontaneous Respiratory Depth Normal Normal Respiratory Pattern Regular Regular Blood Pressure 122/81 Blood Pressure [Left Arm] 127/85 122/81 Blood Pressure [Right Arm] Blood Pressure Mean 94 Blood Pressure Mean [Left Arm] 99 94 Blood Pressure Mean [Right Arm] Blood Pressure Position Blood Pressure Position [Left Arm] Lying Lying Pulse Oximetry 96 90 97 Oxygen Delivery Method Room Air Oxymask Oxygen Flow Rate 10 08/14/18 14:30 08/14/18 14:35 08/14/18 14:40 Temperature Temperature Source Sepsis Recent Fever Within 48 Hours Sepsis New/Unexplained Change in Mental Status Sepsis Action Taken by Nursing Pulse Rate 78 80 71 Pulse Rate [Apical] Pulse Rate [Finger] Pulse Rate [Left Brachial] Pulse Rate from SpO2 Sensor 79 80 72 Pulse Rhythm Pulse Rhythm [Apical] Pulse Rhythm [Finger] Pulse Strength Pulse Strength [Finger] Respiratory Rate 16 19 14 Respiratory Effort / Characteristics Respiratory Depth Respiratory Pattern Blood Pressure 123/82 122/82 130/83 Blood Pressure [Left Arm] Blood Pressure [Right Arm] Blood Pressure Mean 95 95 98 Blood Pressure Mean [Left Arm] Blood Pressure Mean [Right Arm] Blood Pressure Position Blood Pressure Position [Left Arm] Pulse Oximetry 98 97 96 Oxygen Delivery Method Oxygen Flow Rate 08/14/18 14:45 08/14/18 14:46 08/14/18 14:47 Temperature Temperature Source Sepsis Recent Fever Within 48 Hours Sepsis New/Unexplained Change in Mental Status Sepsis Action Taken by Nursing Pulse Rate 75 80 72 Pulse Rate [Apical] Pulse Rate [Finger] Pulse Rate [Left Brachial] Pulse Rate from SpO2 Sensor 75 80 73 Pulse Rhythm Pulse Rhythm [Apical] Pulse Rhythm [Finger] Pulse Strength Pulse Strength [Finger] Respiratory Rate 20 18 16 Respiratory Effort / Characteristics Respiratory Depth Respiratory Pattern Blood Pressure 126/74 Blood Pressure [Left Arm] Blood Pressure [Right Arm] Blood Pressure Mean 91 Blood Pressure Mean [Left Arm] Blood Pressure Mean [Right Arm] Blood Pressure Position Blood Pressure Position [Left Arm] Pulse Oximetry 97 96 95 Oxygen Delivery Method Oxygen Flow Rate 08/14/18 14:50 08/14/18 14:51 08/14/18 14:55 Temperature 37.3 C Temperature Source Temporal Artery Scan Sepsis Recent Fever Within 48 Hours Sepsis New/Unexplained Change in Mental Status Sepsis Action Taken by Nursing Pulse Rate 75 88 71 Pulse Rate [Apical] 70 Pulse Rate [Finger] Pulse Rate [Left Brachial] Pulse Rate from SpO2 Sensor 75 87 71 Pulse Rhythm Pulse Rhythm [Apical] Regular Pulse Rhythm [Finger] Pulse Strength Pulse Strength [Finger] Respiratory Rate 16 17 22 Respiratory Effort / Characteristics Non-Labored Spontaneous Respiratory Depth Normal Respiratory Pattern Regular Blood Pressure 137/89 126/83 Blood Pressure [Left Arm] 126/83 Blood Pressure [Right Arm] Blood Pressure Mean 105 97 Blood Pressure Mean [Left Arm] 97 Blood Pressure Mean [Right Arm] Blood Pressure Position Blood Pressure Position [Left Arm] Lying Pulse Oximetry 95 96 97 Oxygen Delivery Method Nasal Cannula Oxygen Flow Rate 2 08/14/18 15:00 08/14/18 15:01 08/14/18 15:05 Temperature Temperature Source Sepsis Recent Fever Within 48 Hours Sepsis New/Unexplained Change in Mental Status Sepsis Action Taken by Nursing Pulse Rate 71 71 69 Pulse Rate [Apical] Pulse Rate [Finger] Pulse Rate [Left Brachial] Pulse Rate from SpO2 Sensor 71 71 69 Pulse Rhythm Pulse Rhythm [Apical] Pulse Rhythm [Finger] Pulse Strength Pulse Strength [Finger] Respiratory Rate 15 17 21 Respiratory Effort / Characteristics Respiratory Depth Respiratory Pattern Blood Pressure 123/83 130/84 Blood Pressure [Left Arm] Blood Pressure [Right Arm] Blood Pressure Mean 96 99 Blood Pressure Mean [Left Arm] Blood Pressure Mean [Right Arm] Blood Pressure Position Blood Pressure Position [Left Arm] Pulse Oximetry 97 98 97 Oxygen Delivery Method Oxygen Flow Rate 08/14/18 15:20 08/14/18 15:49 08/14/18 16:34 Temperature 37.2 C 36.8 C 37.1 C Temperature Source Oral Oral Oral Sepsis Recent Fever Within 48 Hours Sepsis New/Unexplained Change in Mental Status Sepsis Action Taken by Nursing Pulse Rate Pulse Rate [Apical] Pulse Rate [Finger] 69 65 76 Pulse Rate [Left Brachial] Pulse Rate from SpO2 Sensor Pulse Rhythm Pulse Rhythm [Apical] Pulse Rhythm [Finger] Regular Pulse Strength Pulse Strength [Finger] Normal Respiratory Rate 16 18 18 Respiratory Effort / Characteristics Non-Labored Spontaneous Non-Labored Spontaneous Non-Labored Respiratory Depth Normal Normal Normal Respiratory Pattern Regular Regular Blood Pressure Blood Pressure [Left Arm] 114/79 Blood Pressure [Right Arm] 117/80 113/72 Blood Pressure Mean Blood Pressure Mean [Left Arm] 90 Blood Pressure Mean [Right Arm] 92 85 Blood Pressure Position Blood Pressure Position [Left Arm] Lying Pulse Oximetry 93 98 92 Oxygen Delivery Method Room Air Room Air Room Air Oxygen Flow Rate 08/14/18 17:08 08/14/18 17:47 Temperature 37.5 C Temperature Source Oral Sepsis Recent Fever Within 48 Hours Sepsis New/Unexplained Change in Mental Status Sepsis Action Taken by Nursing Pulse Rate Pulse Rate [Apical] Pulse Rate [Finger] 83 93 H Pulse Rate [Left Brachial] Pulse Rate from SpO2 Sensor Pulse Rhythm Pulse Rhythm [Apical] Pulse Rhythm [Finger] Regular Pulse Strength Pulse Strength [Finger] Normal Respiratory Rate 18 Respiratory Effort / Characteristics Non-Labored Respiratory Depth Normal Respiratory Pattern Regular Blood Pressure Blood Pressure [Left Arm] 120/81 Blood Pressure [Right Arm] 119/82 Blood Pressure Mean Blood Pressure Mean [Left Arm] 94 Blood Pressure Mean [Right Arm] 94 Blood Pressure Position Blood Pressure Position [Left Arm] Lying Pulse Oximetry 94 Oxygen Delivery Method Room Air Oxygen Flow Rate GENERAL: Patient is awake alert in no acute distress patient is resting comfortably and showing no signs of anxiety EYES: The conjunctivae are clear. The pupils are round and reactive. EARS, NOSE, MOUTH AND THROAT: The nose is without any evidence of any deformity. Mucous membranes are moist tongue is midline NECK: The neck is nontender and supple. RESPIRATORY: Normal respiratory effort is noted there is no evidence of wheezing rhonchi or rales CARDIOVASCULAR: Regular rate and rhythm noted there no murmurs rubs or gallops normal S1 normal S2 GASTROINTESTINAL: The abdomen is mildly distended. There is right upper q uadrant tenderness to palpation. No guarding or rigidity was noted. BACK: No midline tenderness or or step-off noted range of motion in flexion extension as well as rotation no signs of muscle spasm noted MUSCULOSKELETAL/EXTREMITIES: There is no evidence of gross deformity full range of motion is noted in the hips and shoulders SKIN: There is no obvious evidence of any rash. There are no petechiae, pallor or cyanosis noted. NEUROLOGIC: Patient is awake alert and oriented x3 strength is symmetric patellar reflexes are 2+ bilaterally Course 2015: Past medical records reviewed. The patient was evaluated in room C07, and a complete history and physical examination were performed. 2127: Reassessed patient and updated on plan for admission. 2015: Discussed patient case with Dr. Olivares. 2017: discussed patient case with Dr Martinez, who accepts patient for admission. Administered Medications Clonazepam (Klonopin) 1 mg PO BID [facility] Stop: 09/13/18 08:59 Last Admin: 08/14/18 08:58 Dose: Not Given Documented by: [id number] Hydromorphone HCl (Dilaudid) 1 mg IV Q2HWA PRN PRN Reason: Pain Stop: 08/27/18 22:47 Last Admin: 08/14/18 15:41 Dose: 1 mg Documented by: [id number] Admin: 08/14/18 08:03 Dose: 1 mg Documented by: [id number] Admin: 08/14/18 05:45 Dose: 1 mg Documented by: [id number] Admin: 08/14/18 03:25 Dose: 1 mg Documented by: [id number] Admin: 08/14/18 00:43 Dose: 1 mg Documented by: [id number] Lactated Ringer's (Lr) 1,000 mls @ 125 mls/hr IV .Q8H [facility] Stop: 09/12/18 22:59 Last Admin: 08/14/18 15:35 Dose: 125 mls/hr Documented by: [id number] Infusion: 08/14/18 15:35 Dose: 0 mls/hr Documented by: [id number] Admin: 08/14/18 07:00 Dose: Not Given Documented by: [id number] Infusion: 08/14/18 06:19 Dose: 0 mls/hr Documented by: [id number] Infusion: 08/14/18 05:04 Dose: 125 mls/hr Documented by: [id number] Infusion: 08/14/18 01:09 Dose: 0 mls/hr Documented by: [id number] Admin: 08/14/18 00:44 Dose: 125 mls/hr Documented by: [id number] Piperacillin Sod/Tazobactam (Sod 3.375 gm/ Dextrose) 115 mls @ 28.75 mls/hr IV Q8H [facility] Stop: 08/24/18 01:59 Last Admin: 08/14/18 17:12 Dose: 28.8 mls/hr Documented by: [id number] Infusion: 08/14/18 14:07 Dose: 0 mls/hr Documented by: [id number] Admin: 08/14/18 10:07 Dose: 28.8 mls/hr Documented by: [id number] Infusion: 08/14/18 05:14 Dose: 0 mls/hr Documented by: [id number] Admin: 08/14/18 01:09 Dose: 28.8 mls/hr Documented by: [id number] Ondansetron HCl (Zofran) 4 mg IV Q6H PRN PRN Reason: Nausea Stop: 09/12/18 22:47 Last Admin: 08/14/18 05:45 Dose: 4 mg Documented by: [id number] Admin: 08/14/18 00:46 Dose: 4 mg Documented by: [id number] Piroxicam (Feldene) 20 mg PO DAILY [facility] Stop: 09/13/18 08:59 Last Admin: 08/14/18 08:58 Dose: Not Given Documented by: [id number] Propranolol HCl (Inderal) 20 mg PO QID [facility] Stop: 09/13/18 08:59 Last Admin: 08/14/18 17:08 Dose: Not Given Documented by: [id number] Admin: 08/14/18 14:06 Dose: Not Given Documented by: [id number] Admin: 08/14/18 08:58 Dose: Not Given Documented by: [id number] Admin: 08/14/18 01:10 Dose: 20 mg Documented by: [id number] Quetiapine Fumarate (Seroquel) 200 mg PO HS [facility] Stop: 09/13/18 20:59 Last Admin: 08/14/18 01:13 Dose: 100 mg Documented by: [id number] Admin: 08/14/18 01:12 Dose: 200 mg Documented by: [id number] Discontinued Medications Clonazepam (Klonopin) 1 mg PO NOW ONE Stop: 08/14/18 01:01 Last Admin: 08/14/18 01:09 Dose: 1 mg Documented by: [id number] Sodium Chloride (Nss 1000ml) 1,000 mls @ 999 mls/hr IV .Q1H1M GILBERT Stop: 08/13/18 21:30 Last Infusion: 08/13/18 21:53 Dose: 0 mls/hr Documented by: [id number] Admin: 08/13/18 20:44 Dose: 999 mls/hr Documented by: [id number] Piperacillin Sod/Tazobactam Sod (Zosyn) 4.5 gm in 120 mls @ 240 mls/hr IV NOW ONE Stop: 08/13/18 21:47 Last Infusion: 08/13/18 21:59 Dose: 0 mls/hr Documented by: [id number] Admin: 08/13/18 21:29 Dose: 240 mls/hr Documented by: [id number] Iothalamate Meglumine (Conray 60%) Confirm Administered Dose 50 ml .ROUTE .STK- MED ONE Stop: 08/14/18 12:29 Last Admin: 08/14/18 13:31 Dose: 15 ml Documented by: [id number] Lidocaine/Epinephrine (Xylocaine/Epinephrine 1%) Confirm Administered Dose 20 ml .ROUTE .STK-MED ONE Stop: 08/14/18 12:29 Last Admin: 08/14/18 14:14 Dose: 8 ml Documented by: [id number] Morphine Sulfate (Morphine Sulfate) 4 mg IV Q15M PRN PRN Reason: Pain Stop: 08/27/18 20:15 Last Admin: 08/13/18 23:21 Dose: 4 mg Documented by: [id number] Admin: 08/13/18 21:34 Dose: 4 mg Documented by: [id number] Admin: 08/13/18 20:44 Dose: 4 mg Documented by: [id number] Ondansetron HCl (Zofran) 4 mg IV NOW STA Stop: 08/13/18 20:17 Last Admin: 08/13/18 20:44 Dose: 4 mg Documented by: [id number] Ondansetron HCl (Zofran) 4 mg IV NOW STA Stop: 08/14/18 11:58 Last Admin: 08/14/18 12:00 Dose: 4 mg Documented by: [id number] Medical Decision Making Differential Diagnosis Differential diagnosis: Etiologies such as appendicitis, diverticulitis, PUD, biliary pathology, UTI, pancreatitis, obstruction, mesenteric ischemia, aortic pathology, infections, inflammatory bowel disease, renal colic, as well as others were entertained. Medical Records Attestation: I reviewed the patient's medical records. Home Medications Current Medication List: was personally reviewed by me Laboratory Data Attestation: I reviewed the patient's lab results. Result diagrams: 08/13/18 20:25 08/13/18 20:25 Lab Results 08/13/18 08/13/18 08/13/18 Range/Units 20:25 20:25 20:26 WBC 15.83 H (4.8-10.8) K/uL RBC 4.66 L (4.7-6.1) M/uL Hgb 14.6 (14.0-18.0) g/dL Hct 42.3 (42-52) % MCV 90.8 (80-100) fL MCH 31.3 (25-34) pg MCHC 34.5 (32-36) g/dL RDW Std Deviation 42.4 (36.4-46.3) fL RDW Coeff of Shakira 12.9 (11.5-14.5) % Plt Count 283 (130-400) K/uL MPV 9.1 (7.4-10.4) fL Immature Gran % (Auto) 0.6 % Neut % (Auto) 66.8 % Lymph % (Auto) 16.9 % [place] % (Auto) 5.0 % Eos % (Auto) 10.4 % Baso % (Auto) 0.3 % Immature Gran # (Auto) 0.09 H (0.00-0.02) K/uL Neut # (Auto) 10.60 H (1.4-6.5) K/uL Lymph # (Auto) 2.67 (1.2-3.4) K/uL [place] # (Auto) 0.79 H (0.11-0.59) K/uL Eos # (Auto) 1.64 H (0-0.5) K/uL Baso # (Auto) 0.04 (0-0.2) K/uL Sodium 138 (136-145) mmol/L Potassium 3.8 (3.5-5.1) mmol/L Chloride 99 (98-107) mmol/L Carbon Dioxide 29 (21-32) mmol/L Anion Gap 9.0 (3-11) BUN 12 (7-18) mg/dl Creatinine 1.11 (0.6-1.4) mg/dl Est Cr Clr Drug Dosing 107.5 ml/min Est GFR ( Amer) 93.1 Est GFR (Non-Af Amer) 80.3 BUN/Creatinine Ratio 10.6 (10-20) Glucose 105 H (70-99) mg/dl Calcium 9.5 (8.5-10.1) mg/dl Total Bilirubin 0.4 (0.2-1) mg/dl AST 20 (15-37) U/L ALT 43 (12-78) U/L Alkaline Phosphatase 62 (45-117) U/L Total Protein 7.4 (6.4-8.2) gm/dl Albumin 4.1 (3.4-5.0) gm/dl Globulin 3.3 (2.5-4.0) gm/dl Albumin/Globulin Ratio 1.3 (0.9-2) Lipase 73 (73-393) U/L Urine Color Dark Yellow Urine Appearance Cloudy H (Clear) Urine pH 8.0 H (4.5-7.5) Ur Specific Sabina 1.021 (1.000-1.030) Urine Protein Negative (Negative) Urine Glucose (UA) Negative (Negative) Urine Ketones Negative (Negative) Urine Blood Negative (Negative) Urine Nitrite Negative (Negative) Urine Bilirubin Negative (Negative) Urine Urobilinogen Negative (Negative) Ur Leukocyte Esterase Negative (Negative) Urine WBC (Auto) 0 (0-5) /hpf Urine RBC (Auto) 0-4 (0-4) /hpf U Hyaline Cast (Auto) 1-5 (0-5) /lpf U Epithel Cells (Auto) 5-10 H (0-5) /lpf Urine Bacteria (Auto) Negative (Negative) Imaging Data Radiologist's Impression: CT abd pelvis wo con CLINICAL HISTORY: 43 years-old Male presenting with right flank pain. TECHNIQUE: Multidetector CT of the abdomen and pelvis was performed without the use of intravenous contrast. IV contrast: None. One or more dose lowering techniques were used consistent with the principles of ALARA (as low as reasonably achievable), including automatic exposure control, mA or kV adjustment to individual patient size, and/or use of iterative reconstruction. COMPARISON: None. CT DOSE (mGy.cm): The estimated cumulative dose is 1108.15 mGy.cm. FINDINGS: Printer Assistant topogram: Unremarkable. Lung bases: Normal heart size. No pericardial or pleural effusion. No focal infiltrate or nodule at the lung bases. Liver: Normal morphology. Normal density. Biliary: No gross biliary ductal dilatation allowing for noncontrast technique. The gallbladder is distended with subtle evidence suggesting tension at the fundus. No gallbladder wall thickening or radiopaque calculi. There is trace pericholecystic inflammatory change of the neck. Pancreas: Moderate parenchymal atrophy. Spleen: Normal noncontrast appearance. Adrenal glands: Normal noncontrast appearance. Kidneys and ureters: Hypodensity in the left kidney likely simple cyst. No nephrolithiasis. No hydronephrosis. Normal ureters. Bladder: Incompletely evaluated secondary to underdistention. Pelvic organs: Normal noncontrast appearance. Bowel: Normal appendix. No bowel obstruction. Peritoneal cavity: No free fluid or intraperitoneal gas. Lymph nodes: No gross lymphadenopathy allowing for noncontrast technique. Vasculature: Atherosclerosis of the normal caliber abdominal aorta. Abdominal wall: Normal. Musculoskeletal: Normal. IMPRESSION: 1. Distended gallbladder with findings suspicious for tension and trace inflammatory change of the gallbladder neck. Findings are suspicious for obstructing cholelithiasis. Developing cholecystitis not excluded. Surgical consultation advised. Consider HIDA scan for further evaluation. The report will be called/faxed according to standard departmental protocol. Electronically signed by: Jaspreet Casey M.D. 08/13/2018 9:07 PM Blood Pressure Blood Pressure Findings: Elevated blood pressure Blood Pressure Disposition: further management by hospitalist LANG Narrative The patient is a 43-year-old male who presented to the emergency department for an evaluation of upper abdominal pain. The patient had right-sided flank pain which was somewhat acute in onset. Initially I thought his condition was consistent with ureteral colic. Ultimately the patient was found to have signs of cholecystitis on CT the abdomen and pelvis. He was treated with IV fluids IV pain medication as well as IV antibiotics. I discussed the patient's laboratory and radiographic studies with him. I also discussed his case with the on-call general surgeon as well as the on-call [facility] hospitalist. They have agreed to evaluate patient in the emergency department for further management and disposition. Impression & Plan Cholecystitis, Abdominal pain, RUQ Discharge Plan Visit Data *Final* Discharge Date/Time: 08/14/18 00:13 Chief Complaint: Abdominal Pain Stated Complaint: EXTREME ABD PAIN ED Provider: Moise Gonzalez Discharge Problem: Cholecystitis, Abdominal pain, RUQ Patient Disposition: Admitted As Inpatient Discharge Instructions Interventions: ED Discharge Assessment Last Done: 08/14/18 00:13 The scribe's documentation has been prepared under my direction and personally reviewed by me in its entirety. I confirm that the note above accurately reflects all work, treatment, procedures, and medical decision making performed by me.
[2018-08-13] MEDS ORDERED: SODIUM CHLORIDE 0.9% 1000ML 1,000 ML IV SCH (20:30)
[2018-08-13 20:42] LABS: Basophils # (auto) 0.04 K/uL (0-0.2); Basophils % (auto) 0.3 %; Eosinophils # (auto) 1.64 K/uL (0-0.5); Eosinophils % (auto) 10.4 %; Hematocrit (blood only) 42.3 % (42-52); Hemoglobin 14.6 g/dL (14.0-18.0); Immature Granulocytes # (auto) 0.09 K/uL (0.00-0.02); Immature Granulocytes % (auto) 0.6 %; Lymphocytes # (auto) 2.67 K/uL (1.2-3.4); Lymphocytes % (auto) 16.9 %; Mean Corpuscular Hgb Conc 34.5 g/dL (32-36); Mean Corpuscular Volume 90.8 fL (80-100); Mean Platelet Volume 9.1 fL (7.4-10.4); Monocytes # (auto) 0.79 K/uL (0.11-0.59); Neutrophils % (auto) 66.8 %; Platelet Count 283 K/uL (130-400); RDW Coefficient of Variation 12.9 % (11.5-14.5); RDW Standard Deviation 42.4 fL (36.4-46.3); Red Blood Count 4.66 M/uL (4.7-6.1); White Blood Count 15.83 K/uL (4.8-10.8)
[2018-08-13] MEDS: MoRPHine SULFATE 4 MG/ML 1 ML CARP\\VIAL IV PRN ×3 (20:44→23:21)
[2018-08-13 20:52] LABS: Albumin Level 4.1 gm/dl (3.4-5.0); BUN Creatinine Ratio 10.6 (10-20); Calcium 9.5 mg/dl (8.5-10.1); Creatinine Clr Calc Pharmacy 107.5 ml/min; Est GFR (African American) 93.1; Est GFR (Non-African American) 80.3; Potassium 3.8 mmol/L (3.5-5.1)
[2018-08-13 20:53] LABS: Appearance Urine Cloudy (Clear); Bacteria Urine Automated Negative (Negative); Bilirubin Urine Negative (Negative); Blood Urine Negative (Negative); Color Urine Dark Yellow; Glucose Urine UA Negative (Negative); Ketones Urine Negative (Negative); Leukocyte Esterase Urine Negative (Negative); Nitrite Urine Negative (Negative); Protein Urine Negative (Negative); RBC Urine Automated 0-4 /hpf (0-4); Specific Gravity Urine 1.021 (1.000-1.030); Urobilinogen Urine Negative (Negative); WBC Urine Automated 0 /hpf (0-5)
[2018-08-13 20:55] LABS: Albumin Globulin Ratio 1.3 (0.9-2); Bilirubin,Total 0.4 mg/dl (0.2-1); Globulin 3.3 gm/dl (2.5-4.0); Total Protein 7.4 gm/dl (6.4-8.2)
--- NOTE | 2018-08-13 21:08 | CT Scan Report ---
CT abd pelvis wo con CLINICAL HISTORY: 43 years-old Male presenting with right flank pain. TECHNIQUE: Multidetector CT of the abdomen and pelvis was performed without the use of intravenous co ntrast. IV contrast: None. One or more dose lowering techniques were used consistent with the princip les of ALARA (as low as reasonably achievable), including automatic exposure control, mA or kV adjust ment to individual patient size, and/or use of iterative reconstruction. COMPARISON: None. CT DOSE (mGy.cm): The estimated cumulative dose is 1108.15 mGy.cm. FINDINGS: Multigrapher topogram: Unremarkable. Lung bases: Normal heart size. No pericardial or pleural effusion. No focal infiltrate or nodule at t he lung bases. Liver: Normal morphology. Normal density. Biliary: No gross biliary ductal dilatation allowing for noncontrast technique. The gallbladder is di stended with subtle evidence suggesting tension at the fundus. No gallbladder wall thickening or radi opaque calculi. There is trace pericholecystic inflammatory change of the neck. Pancreas: Moderate parenchymal atrophy. Spleen: Normal noncontrast appearance. Adrenal glands: Normal noncontrast appearance. Kidneys and ureters: Hypodensity in the left kidney likely simple cyst. No nephrolithiasis. No hydron ephrosis. Normal ureters. Bladder: Incompletely evaluated secondary to underdistention. Pelvic organs: Normal noncontrast appearance. Bowel: Normal appendix. No bowel obstruction. Peritoneal cavity: No free fluid or intraperitoneal gas. Lymph nodes: No gross lymphadenopathy allowing for noncontrast technique. Vasculature: Atherosclerosis of the normal caliber abdominal aorta. Abdominal wall: Normal. Musculoskeletal: Normal. IMPRESSION: 1. Distended gallbladder with findings suspicious for tension and trace inflammatory change of the g allbladder neck. Findings are suspicious for obstructing cholelithiasis. Developing cholecystitis not excluded. Surgical consultation advised. Consider HIDA scan for further evaluation. The report will be called/faxed according to standard departmental protocol. Electronically signed by: Jaspreet Casey M.D. 08/13/2018 9:07 PM
[2018-08-13] MEDS ORDERED: PIPERACILLIN/TAZOBACTAM 4.5 GM/120 ML BAG IV ONE (21:18)
[2018-08-13] MEDS ORDERED: PIPERACILL/TAZOBAC CONSULT ACTIVE PRN ×2 (21:18→22:48)
[2018-08-14] MEDS ORDERED: IPRATROPIUM BROMIDE/ALBUTEROL respimat INH INH PRN (00:27)
[2018-08-14] MEDS: HYDROmorphone INJ 1 MG/ML SYRINGE IV PRN ×6 (00:43→17:49)
[2018-08-14] MEDS: LACTATED RINGER'S 1,000 ML IV SCH ×4 (00:44→23:24)
[2018-08-14] MEDS: ONDANSETRON INJ 2 MG/ML 2 ML VIAL IV PRN ×2 (00:46→05:45)
[2018-08-14] MEDS ORDERED: clonazePAM 1 MG TAB PO ONE (01:00)
[2018-08-14] MEDS: PIPERACILLIN/TAZOBACTAM 3.375 GM in DEXTROSE 5% 100 ML IV SCH ×3 (01:09→17:12)
[2018-08-14] MEDS: PROPRANOLOL HCL 20 MG TAB PO SCH ×5 (01:10→20:01)
[2018-08-14] MEDS: QUETIAPINE FUMARATE 200 MG TAB PO SCH ×3 (01:12→22:10)
--- NOTE | 2018-08-14 01:53 | History & Physical Report ---
Date of Service August 14, 2018 Assessment & Plan (1) Cholecystitis: Present time will admit the patient will plan to add tomorrow the lap juan c tomorrow we will cholangiogram risk and complication were explained to the patient and including bleeding converted to an open procedure injury to other organs and they would like to proceed accordingly Present on Admission?: Yes History of Present Illness Primary Care Provider: Catalina Rubin MD Mr. Choe came into the emergency room earlier this evening with abdominal pain initially thought in the lower abdomen but a CAT scan revealed he had findings of acute cholecystitis He stated the pain started this morning progressively got worse did not really disturb his appetite and a few small cheeseburgers in the afternoon but apparently last evening he had a fairly fatty meal that may have triggered off his gallbladder issues past medical history is not indicate any previous bouts suggestive of gallbladder problems Allergies Allergy/AdvReac Type Severity Reaction Status Date / Time No Known Allergies Allergy Verified 08/13/18 20:53 Home Medications Home Medications Medication Instructions Recorded Confirmed Type clonazepam 1 mg PO BID 08/13/18 08/13/18 History ipratropium-albuterol [Combivent 1 puff INHALATION BID PRN 08/13/18 08/13/18 History Respimat] piroxicam 20 mg PO DAILY 08/13/18 08/13/18 History propranolol 20 mg PO QID 08/13/18 08/13/18 History quetiapine [Seroquel] 200 mg PO HS 08/13/18 08/13/18 History Past Med/Surg History Medical History Deviated nasal septum (Chronic) sinus surgery x2 Anxiety Hypothyroidism Palpitations Tachycardia Wrist fracture surgery. left Surgical History No pertinent past surgical history Hx of tonsillectomy Family History Other Family history non-contributory Social History Preferred Language: Bengali Communication Ability: Effective Embossing Machine Operator Required: No Beliefs That Will Affect Care: None Current Living Situation: Spouse Other Information That Helps Us Care for You: No Feels Safe at Home: Yes Safety Concerns: Feels Safe At This Time Smoking Status: Former smoker Hx Alcohol Use: No Physical Exam Vital Signs (Past 24 Hours): Last Vital Signs Temp 37.3 C 08/14/18 00:15 Pulse 73 08/14/18 00:15 Resp 18 08/14/18 00:15 BP 148/104 H 08/14/18 00:15 Pulse Ox 98 08/14/18 00:15 Physical Exam: Present time he is alert coherent no distress significant other at bedside the sclerae nonicteric oropharyngeal area is normal no cervical lymphadenopathy trachea midline lungs clear to auscultation percussion heart normal sinus rhythm the abdomen completely benign except tenderness on deep pa lpation in the right upper quadrant but no evidence of any Cruz sign Results & Data Laboratory Results Laboratory results were noted Diagnostic Findings Was reviewed
[2018-08-14] MEDS ORDERED: ACETAMINOPHEN 1000 MG/100 ML IV IV ONE (06:51)
--- NOTE | 2018-08-14 07:28 | Ultrasound Report ---
US gallbladder HISTORY: Pain. Nausea. cholelithiasis COMPARISON: None. FINDINGS: Ultrasound evaluation of the right upper quadrant shows a combination of gallstones and sludge within the gallbladder lumen. There is a component of moderate pericholecystic edema as well as gallbladder wall edema. Acute cholecystitis is considered. Gallbladder is distended at 13 cm maximum dimension. There is uniform throughout. Right kidney is negative for hydronephrosis. IMPRESSION: 1. Findings suggestive of acute cholecystitis. 2. Otherwise negative right upper quadrant ultrasound. 3. Normal caliber bile ducts with the common duct measuring 4 mm. 5. Patient's described palpable nodule over the epigastric region is not seen by ultrasound criteria. The above report was generated using voice recognition software. It may contain grammatical, syntax or spelling errors. Electronically signed by: Jian Marino M.D. 08/14/2018 7:27 AM
[2018-08-14] MEDS: PIROXICAM 10 MG CAP PO SCH (08:58)
[2018-08-14] MEDS: clonazePAM 1 MG TAB PO SCH ×2 (08:58→20:01)
[2018-08-14] MEDS ORDERED: ONDANSETRON INJ 2 MG/ML 2 ML VIAL IV STA (11:57)
--- NOTE | 2018-08-14 11:57 | Anesthesiology Consultation ---
Date of Service August 14, 2018 Palpitations Anxiety Obesity Assessment & Plan (1) Encounter for pre-operative examination: Chart Review Chart Review: Acceptable Risk for Surgery and Patient NOT seen in Pre Admission Testing Consults Requested none ASA ASA2 Proposed Anesthesia Anesthesia Type: General Risk / Benefits Reviewed With: PT / POA / Parent / Guardian, Accepts Plan and Informed Consent Obtained NPO Date Last Intake of Fluids: 08/13/18 Time Last Intake of Fluids: 23:55 Last Intake of Fluids Comment: sip of water w/med Date Last Intake of Solids: 08/13/18 Time Last Intake of Solids: 15:00 History Surgery Operation Date: 08/14/18 07:05 Proposed Procedures p Laparoscopic Cholecystectomy - Rao Olivares MD, FACS Height/Weight Height: 5 ft 11 in Weight: 109.3 kg Allergies Allergy/AdvReac Type Severity Reaction Status Date / Time No Known Allergies Allergy Verified 08/13/18 20:53 Medications Home Medications Medication Instructions Recorded Confirmed Last Taken clonazepam 1 mg PO BID 08/13/18 08/13/18 08/13/18 ipratropium-albuterol [Combivent 1 puff INHALATION BID PRN 08/13/18 08/13/18 Unknown Respimat] piroxicam 20 mg PO DAILY 08/13/18 08/13/18 08/13/18 propranolol 20 mg PO QID 08/13/18 08/13/18 08/13/18 quetiapine [Seroquel] 200 mg PO HS 08/13/18 08/13/18 08/12/18 Active Medications Generic Name Dose Route Start Last Admin Trade Name Freq PRN Reason Stop Dose Admin Clonazepam 1 mg 08/14/18 09:00 08/14/18 08:58 Klonopin PO 09/13/18 08:59 Not Given BID GILBERT Hydromorphone HCl 1 mg 08/13/18 22:48 08/14/18 08:03 Dilaudid IV 08/27/18 22:47 1 mg Q2HWA PRN Administration Pain Lactated Ringer's 1,000 mls @ 125 mls/hr 08/13/18 23:00 08/14/18 07:00 Lr IV 09/12/18 22:59 Not Given .Q8H GILBERT Piperacillin Sod/Tazobactam 115 mls @ 28.75 mls/hr 08/14/18 02:00 08/14/18 10:07 Sod 3.375 gm/ Dextrose IV 08/24/18 01:59 28.8 mls/hr Q8H GILBERT Administration Ondansetron HCl 4 mg 08/13/18 22:48 08/14/18 05:45 Zofran IV 09/12/18 22:47 4 mg Q6H PRN Administration Nausea Piroxicam 20 mg 08/14/18 09:00 08/14/18 08:58 Feldene PO 09/13/18 08:59 Not Given DAILY GILBERT Propranolol HCl 20 mg 08/14/18 09:00 08/14/18 08:58 Inderal PO 09/13/18 08:59 Not Given QID GILBERT Quetiapine Fumarate 200 mg 08/14/18 21:00 08/14/18 01:13 Seroquel PO 09/13/18 20:59 100 mg HS GILBERT Administration Past Medical History Medical History Deviated nasal septum (Chronic) sinus surgery x2 Anxiety Hypothyroidism Palpitations Tachycardia Wrist fracture surgery. left Past Family History Family History Other Family history non-contributory Past Surgical History Surgical History No pertinent past surgical history Hx of tonsillectomy Social History Smoking Status: Former smoker tobacco type: cigarettes Do You Dip or Chew Tobacco: No Smoking End Date: 08/2017 Hx Alcohol Use: No Physical Exam Vital Signs Last Vital Signs Temp 37 C 08/14/18 11:40 Pulse 76 08/14/18 11:40 Resp 18 08/14/18 11:40 BP 127/85 08/14/18 11:40 Pulse Ox 96 08/14/18 11:40 Constitutional + obese ENMT Mouth: no TMJ abnormality Thyromental Distance: > or= 3.5 Finger Breadths Mallampati Class: II Neck normal visual inspection Respiratory normal respiratory effort Cardiovascular Rate/Rhythm: regular rate and regular rhythm Neurologic moves all extremities Psychiatric Orientation: alert Testing Laboratory Results 08/13/18 20:25 08/13/18 20:25 Urine Color Dark Yellow 08/13/18 20:26 Urine Appearance Cloudy (Clear) H 08/13/18 20:26 Urine pH 8.0 (4.5-7.5) H 08/13/18 20:26 Ur Specific [place] 1.021 (1.000-1.030) 08/13/18 20:26 Urine Protein Negative (Negative) 08/13/18 20:26 Urine Glucose (UA) Negative (Negative) 08/13/18 20:26 Urine Ketones Negative (Negative) 08/13/18 20:26 Urine Nitrite Negative (Negative) 08/13/18 20:26 Ur Leukocyte Esterase Negative (Negative) 08/13/18 20:26 Urine WBC (Auto) 0 /hpf (0-5) 08/13/18 20:26 Urine RBC (Auto) 0-4 /hpf (0-4) 08/13/18 20:26 U Hyaline Cast (Auto) 1-5 /lpf (0-5) 08/13/18 20:26 U Epithel Cells (Auto) 5-10 /lpf (0-5) H 08/13/18 20:26 Urine Bacteria (Auto) Negative (Negative) 08/13/18 20:26
[2018-08-14] MEDS ORDERED: ONDANSETRON INJ 2 MG/ML 2 ML VIAL IV PRN (11:58)
[2018-08-14] MEDS ORDERED: fentaNYL citrate 100 MCG/2 ML VIAL IV PRN (11:58)
[2018-08-14] MEDS ORDERED: ATROPINE SULFATE 0.1 MG/ML 10ML SYR IV PRN (11:58)
[2018-08-14] MEDS ORDERED: HYDROmorphone INJ 2 MG/ML SYR/VIAL IV PRN (11:58)
[2018-08-14] MEDS ORDERED: ePHEDrine sulfate 50 MG/ML AMP IV PRN (11:58)
[2018-08-14] MEDS ORDERED: PROMETHAZINE HCL 6.25 MG in SODIUM CHLORIDE 0.9% 50 ML IV PRN (11:58)
[2018-08-14] MEDS ORDERED: MIDAZOLAM HCL 1 MG/ML 2ML VIAL ONE (12:21)
[2018-08-14] MEDS ORDERED: fentaNYL citrate 100 MCG/2 ML VIAL ONE ×3 (12:21→13:55)
[2018-08-14] MEDS ORDERED: CONRAY 60% 50 ML VIAL ONE (12:28)
[2018-08-14] MEDS ORDERED: LIDOCAINE/EPINEPHRINE 1% 20 ML VIAL ONE (12:28)
[2018-08-14] MEDS ORDERED: LIDOCAINE HCL 2% 2 ML VIAL/AMP(20MG/ML) INFIL ONE (13:17)
[2018-08-14] MEDS ORDERED: ROCURONIUM BROMIDE 10 MG/ML 5 ML VIAL ONE ×2 (13:17→13:45)
[2018-08-14] MEDS ORDERED: ONDANSETRON INJ 2 MG/ML 2 ML VIAL ONE (13:17)
[2018-08-14] MEDS ORDERED: DEXAMETHASONE SOD INJ 4 MG/ML VIAL ONE (13:17)
[2018-08-14] MEDS ORDERED: PROPOFOL IV EMULSION 10 MG/ML 20 ML VIAL IV ONE ×2 (13:17→13:39)
--- NOTE | 2018-08-14 13:51 | Fluoroscopy Report ---
[place] cholangiogram OR HISTORY: Post cholecystectomy. FLUOROSCOPY TIME: 2 seconds. FINDINGS: Fluoroscopy was provided for an intraoperative cholangiogram status post cholecystectomy. C ontrast was injected through the cystic duct remnant. The common bile duct is normal in course and ca liber. There are no filling defects seen within the common bile duct to suggest a retained stone. Sm all lucency overlying the mid common duct. The represent air-containing instrumentation. This is kristin factual. There is good flow of contrast to the small bowel. Contrast extends into the small bowel. There is no intrahepatic bile duct dilatation. IMPRESSION: Fluoroscopy provided for an intraoperative cholangiogram status post cholecystectomy. No filling defects within the common bile duct. The above report was generated using voice recognition software. It may contain grammatical, syntax or spelling errors. Electronically signed by: Jian Marino M.D. 08/14/2018 1:50 PM
--- NOTE | 2018-08-14 14:12 | Post Operative Brief Note ---
Immediate Post Op Note v1 Date of Surgery August 14, 2018 Pre & Post Diagnosis Operation Date: 08/14/18 07:05 Pre-Op Diagnosis: Acute Cholecystitis Post-Op Diagnosis: Acute Cholecystitis Procedure Operation Date: 08/14/18 07:05 Actual Procedures p Laparoscopic Cholecystectomy with Intraoperative Cholangiogram(Not Applicable) - Rao Olivares MD, FACS Surgeon Rao Olivares MD, FACS Health Program Director 0 Estimated Blood Loss 50 Findings Consistent with Post-Op Diagnosis Drains Lorne-Page Drain (19 round)
--- NOTE | 2018-08-14 14:24 | Operative Report ---
Post Operative Report Pre & Post Diagnosis Operation Date: 08/14/18 07:05 Pre-Op Diagnosis: Acute Cholecystitis Post-Op Diagnosis: Acute Cholecystitis Procedure Operation Date: 08/14/18 07:05 Actual Procedures p Laparoscopic Cholecystectomy with Intraoperative Cholangiogram(Not Applicable) - Rao Olivares MD, FACS Patient was brought into the operating theater general endotracheal anesthesia antibiotics were running on board the abdomen was prepped Betadine scrub solution properly draped a timeout was had small incision was made supraumbilically sufficient enough to place a Veress needle followed by CO2 followed by 5 mm trocar point of entry expected no intra-identified on direct visualization 5 mm epigastric 2 5 mm subcostal ports were placed with preemptive local analgesia 0.5% Marcaine we could see the gallbladder omentum was wrapped around it with. Radiation nature thick-walled edematous this point we used the aspirating needle and placed at the fundus the gallbladder where we able then to free up some clear fluid indicative of hydrops once we had sufficient evacuation of the fluid we grasped set at the site of the puncture with a lateral grasper elevated the gallbladder above the liver significant amount of edema and omentum was wrapped around the body of the gallbladder down towards its neck which most towards dissection was done bluntly as we got more into the neck there was significant morbid edema more of an acute nature then the one brick sorter we were able then to identify the structure that was going into the gallbladder and the takeoff consistent with a cystic duct and made a clip proximal to it at the takeoff from the gallbladder and a small opening was made no real fluid was appreciated although the duct itself was small we did place a #4 urethral catheter transverse and the abdominal wall and a 14 Angiocath in the cystic duct serial x-rays were taken showed free flow into the duodenum the distal aspect of the common bile duct appeared to have a little dilatation and narrowing down distally not sure what to make of it but there was no definite filling defects the Cholangiocath was removed the cystic duct was doubly clipped and divided gallbladder was then taken out in antegrade fashion identifying the cystic artery which was doubly clipped proximally once distally most of her dissection was done bluntly due to the significant edema on the wall which we were able to divide and find out a plane of dissection leaving the posterior wall of the gallbladder peritoneum onto the liver once we had freed this mostly up we then placed in an Endopouch and actually took it out through the epigastric area enlarging the incision and also the dilating up the tract to accommodate the tense tissue and dense tissue of the gallbladder wall once we are doing this the patient had cholesterol stones one large one the mucosa the gallbladder appeared ischemic cultures would be taken subhepatic suprahepatic area was checked h emostasis appeared satisfactory this point I elected to drain it with a Fadi drain which we did by first placing the camera in the lateral port in the right upper quadrant visualize the umbilical opening there were no adhesions there and the drain was brought into the from the epigastric port taken out through the lateral port attached to skin edge with 3-0 Vicryl nylon placed subhepatically individual trochars removed the last the umbilical trocar wounds were closed with 4-0 Monocryl Steri-Strips applied procedure was tolerated well by the patient estimated blood loss approximately 50 cc Surgeon Rao Olivares MD, FACS Tennis Net Maker 0 Estimated Blood Loss 50 Findings Consistent with Post-Op Diagnosis Specimens gallbladder and contents Description of Procedure merda I attest to the content of the Intraoperative Record and any orders documented therein. Any exceptions are noted below.
--- NOTE | 2018-08-14 14:53 | Anesthesiology Progress Note ---
Date of Service August 14, 2018 Anesthesia Post Procedure Vital Signs Vital Signs: Temp Pulse Pulse Pulse Pulse Resp BP 08/14/18 14:46 80 18 126/74 08/14/18 14:45 75 20 08/14/18 14:40 71 14 130/83 08/14/18 14:35 80 19 122/82 08/14/18 14:30 78 16 123/82 08/14/18 14:28 37.9 C H 75 85 19 122/81 08/14/18 14:27 87 08/14/18 11:40 37 C 76 18 08/14/18 08:57 83 08/14/18 08:00 36.6 C 86 16 08/14/18 04:32 73 08/14/18 00:45 73 08/14/18 00:15 37.3 C 73 18 08/14/18 00:10 08/14/18 00:05 08/14/18 00:02 82 20 08/14/18 00:00 08/13/18 23:59 151/94 H 08/13/18 23:58 08/13/18 23:25 72 16 08/13/18 23:20 69 12 08/13/18 23:15 71 18 08/13/18 23:10 72 21 08/13/18 23:05 69 18 08/13/18 23:00 71 23 08/13/18 22:55 69 20 08/13/18 22:52 68 68 23 124/95 08/13/18 22:50 70 25 H 08/13/18 22:45 72 27 H 08/13/18 22:40 71 21 08/13/18 22:35 75 29 H 08/13/18 22:30 68 20 08/13/18 22:25 67 21 08/13/18 22:20 66 22 08/13/18 22:15 69 20 08/13/18 22:10 69 23 08/13/18 22:05 72 19 08/13/18 22:00 72 15 08/13/18 21:55 70 21 08/13/18 21:50 77 23 08/13/18 21:45 69 20 08/13/18 21:40 71 21 08/13/18 21:35 65 24 08/13/18 21:31 62 16 08/13/18 21:30 64 13 08/13/18 21:29 62 15 145/106 H 08/13/18 21:25 64 20 08/13/18 21:20 66 20 08/13/18 21:06 68 67 22 149/101 H 08/13/18 20:07 36.9 C 78 20 167/104 H BP BP Pulse Ox 08/14/18 14:46 96 08/14/18 14:45 97 08/14/18 14:40 96 08/14/18 14:35 97 08/14/18 14:30 98 08/14/18 14:28 122/81 97 08/14/18 14:27 90 08/14/18 11:40 127/85 96 08/14/18 08:57 96/63 L 08/14/18 08:00 120/82 94 08/14/18 04:32 146/90 H 08/14/18 00:45 151/99 H 08/14/18 00:15 148/104 H 98 08/14/18 00:10 95 08/14/18 00:05 96 08/14/18 00:02 151/94 H 96 08/14/18 00:00 96 08/13/18 23:59 96 08/13/18 23:58 96 08/13/18 23:25 95 08/13/18 23:20 97 08/13/18 23:15 97 08/13/18 23:10 95 08/13/18 23:05 96 08/13/18 23:00 95 08/13/18 22:55 95 08/13/18 22:52 124/95 97 08/13/18 22:50 96 08/13/18 22:45 96 08/13/18 22:40 97 08/13/18 22:35 97 08/13/18 22:30 97 08/13/18 22:25 96 08/13/18 22:20 98 08/13/18 22:15 97 08/13/18 22:10 96 08/13/18 22:05 96 08/13/18 22:00 98 08/13/18 21:55 95 08/13/18 21:50 96 08/13/18 21:45 96 08/13/18 21:40 98 08/13/18 21:35 96 08/13/18 21:31 145/106 H 97 08/13/18 21:30 98 08/13/18 21:29 96 08/13/18 21:25 97 08/13/18 21:20 97 08/13/18 21:06 149/101 H 98 08/13/18 20:07 100 Pain Intensity Upper Abdomen: Pain Intensity: 0 Notes Mental Status: alert / awake / arousable Patient Amnestic to Procedure: Yes Nausea / Vomiting: adequately controlled Pain: adequately controlled Airway Patency, RR, SpO2: stable & adequate BP & HR: stable & adequate Hydration State: stable & adequate Anesthetic Complications: no major complications apparent
[2018-08-14] MEDS: OXYCODONE/ACETAMINOPHEN 5mg/325mg TAB PO PRN (20:01)
[2018-08-15] MEDS: OXYCODONE/ACETAMINOPHEN 5mg/325mg TAB PO PRN ×4 (00:13→15:14)
[2018-08-15] MEDS: PIPERACILLIN/TAZOBACTAM 3.375 GM in DEXTROSE 5% 100 ML IV SCH ×2 (01:59→09:48)
--- NOTE | 2018-08-15 07:18 | Surgery Progress Note ---
Date of Service August 15, 2018 Assessment & Plan (1) Cholecystitis: POD 1 lap juan c labs pending possibly home later today Subjective advancing diet, no nausea, some flatus Physical Exam Vital Signs (Past 24 Hours): Last Vital Signs Temp 37.0 C 08/15/18 02:53 Pulse 93 H 08/15/18 02:53 Resp 17 08/15/18 02:53 BP 95/54 L 08/15/18 02:53 Pulse Ox 91 08/15/18 02:53 Gastrointestinal (Abdomen): Inspection/Auscultation: + abdominal surgical incision (dressing dry) and + abdominal surgical drain present (30 cc); abdomen not distended Percussion/Palpation: abdomen soft
[2018-08-15 07:21] LABS: Creatinine Clr Calc Pharmacy 108.7 ml/min; Est GFR (African American) 95.2; Est GFR (Non-African American) 82.1
[2018-08-15] MEDS: LACTATED RINGER'S 1,000 ML IV SCH (07:26)
[2018-08-15] MEDS: clonazePAM 1 MG TAB PO SCH (08:43)
[2018-08-15] MEDS: PIROXICAM 10 MG CAP PO SCH (08:44)
[2018-08-15] MEDS: PROPRANOLOL HCL 20 MG TAB PO SCH ×2 (08:46→13:39)
--- NOTE | 2018-08-15 09:21 | Anesthesiology Progress Note ---
Date of Service August 15, 2018 Anesthesia Post Procedure Vital Signs Vital Signs: Temp Pulse Pulse Pulse Pulse Resp BP 08/15/18 08:45 75 08/15/18 07:49 37.1 C 74 12 08/15/18 02:53 37.0 C 93 H 17 08/14/18 23:13 37.1 C 89 16 08/14/18 19:58 99 H 08/14/18 18:45 37.3 C 101 H 18 08/14/18 17:47 37.5 C 93 H 18 08/14/18 17:08 83 08/14/18 16:34 37.1 C 76 18 08/14/18 15:49 36.8 C 65 18 08/14/18 15:20 37.2 C 69 16 08/14/18 15:05 69 21 130/84 08/14/18 15:01 71 17 123/83 08/14/18 15:00 71 15 08/14/18 14:55 37.3 C 71 70 22 126/83 08/14/18 14:51 88 17 137/89 08/14/18 14:50 75 16 08/14/18 14:47 72 16 08/14/18 14:46 80 18 126/74 08/14/18 14:45 75 20 08/14/18 14:40 71 14 130/83 08/14/18 14:35 80 19 122/82 08/14/18 14:30 78 16 123/82 08/14/18 14:28 37.9 C H 75 85 19 122/81 08/14/18 14:27 87 08/14/18 11:40 37 C 76 18 BP BP Pulse Ox 08/15/18 08:45 114/65 08/15/18 07:49 112/78 93 08/15/18 02:53 95/54 L 91 08/14/18 23:13 108/61 91 08/14/18 19:58 121/81 08/14/18 18:45 123/81 94 08/14/18 17:47 120/81 94 08/14/18 17:08 119/82 08/14/18 16:34 114/79 92 08/14/18 15:49 113/72 98 08/14/18 15:20 117/80 93 08/14/18 15:05 97 08/14/18 15:01 98 08/14/18 15:00 97 08/14/18 14:55 126/83 97 08/14/18 14:51 96 08/14/18 14:50 95 08/14/18 14:47 95 08/14/18 14:46 96 08/14/18 14:45 97 08/14/18 14:40 96 08/14/18 14:35 97 08/14/18 14:30 98 08/14/18 14:28 122/81 97 08/14/18 14:27 90 08/14/18 11:40 127/85 96 Pain Intensity Upper Abdomen: Pain Intensity: 5 Notes Mental Status: alert / awake / arousable and participated in evaluation Patient Amnestic to Procedure: Yes Nausea / Vomiting: adequately controlled Pain: adequately controlled Airway Patency, RR, SpO2: stable & adequate BP & HR: stable & adequate Hydration State: stable & adequate Anesthetic Complications: no major complications apparent and Pt Satisfied with anesthetic care
[2018-08-15] MEDS: HYDROmorphone INJ 1 MG/ML SYRINGE IV PRN (10:52)
[2018-08-15 15:16] VITALS: TEMP 99.1; O2SAT 94
[2018-08-15 15:59] VITALS: BP 108/61; PULSE 74
--- NOTE | 2018-08-16 10:10 | Discharge Summary ---
Date of Service August 21, 2018 Discharge Data Procedures Performed Operation Date: 08/14/18 07:05 Actual Procedures p Laparoscopic Cholecystectomy with Intraoperative Cholangiogram(Not Applicable) - Rao Olivares MD, FACS
--- NOTE | 2018-08-18 00:34 | Discharge Summary ---
PRIMARY DISCHARGE DIAGNOSIS: Acute cholecystitis. SECONDARY DISCHARGE DIAGNOSES: 1. Anxiety. 2. History of tachycardia/palpitations. PROCEDURE PERFORMED: Laparoscopic cholecystectomy with intraoperative cholangiogram on 08/14/2018. HOSPITAL COURSE: The patient is a 43-year-old male who presented to the Emergency Department with right upper quadrant pain. His white count was 15,000. CT and ultrasound were consistent with cholelithiasis and acute cholecystitis. He was admitted to surgery service overnight, started on IV antibiotics and surgery planned for the morning. He was taken to the operating room the next day for laparoscopic cholecystectomy. Cholangiogram was negative. He was returned to the surgical floor. Next day, he was tolerating diet and oral analgesics. Fadi drain had been placed output was 30 mL overnight. His abdomen was soft. He was stable for discharge home on oral antibiotics. DISCHARGE INSTRUCTIONS: Discharge home. Follow up with Dr. Olivares's office in 3-5 days for removal of the Fadi drain. DISCHARGE MEDICATIONS: Cipro 500 mg p.o. b.i.d. x5, Percocet 1-2 tablets every 4 hours as needed. Resume home medications, Clonazepam 1 mg p.o. b.i.d., Combivent 1 puff b.i.d., piroxicam 20 mg daily, propranolol 20 mg q.i.d., Seroquel 200 mg at bedtime.
== END 2018-08-15 16:25 | disposition home or self-care (01) | DRG 419 ==
LOC: ED 20:00 → 3N 23:25